=== PATIENT | male | born 1970 | race American Indian/Alaskan Native ===

== ENCOUNTER 2018-07-02 09:48 | Inpatient (IN) | payer BC ==
[~2018-07-02 09:48] MED LIST: Acetaminophen 1,000 MG in Premix Bag 1 BAG IV SCH; Famotidine 20 MG/2 ML SDV IVPUSH SCH; Ketorolac 30 MG/ML SDV IVPUSH SCH; Ropivacaine 49.25 ML, Ketorolac 30 MG, EPINEPHrine 0.5 MG, cloNIDine 80 MCG in Sodium C... INJECT SCH; Scopolamine 1.5 MG Transdermal Patch TRDERM SCH; Tranexamic Acid 2,000 MG in Sodium Chloride 0.9% 100 ML IV ONE; ceFAZolin 2 GM in Premix Bag 1 BAG IV SCH
[2018-07-02] MEDS: Lactated Ringers 1,000 ML IV SCH ×2 (10:23→15:06)
--- NOTE | 2018-07-02 10:45 | PCM.PREANE ---
Preanesthetic Assessment - Anesthesia/Transfusion/Family Hx Anesthesia History: Prior Anesthesia Without Reaction Other Type of Anesthesia Reaction Comment: Denies any known problem in past Family History of Anesthesia Reaction: No Transfusion History: No Prior Transfusion(s) Intubation History: Unknown - Review of Systems General: No Symptoms Pulmonary: No Symptoms Cardiovascular: No Symptoms Gastrointestinal: No Symptoms Neurological: No Symptoms Other: Reports: None - Physical Assessment O2 Sat by Pulse Oximetry: 100 Respiratory Rate: 16 Vital Signs: Last Vital Signs Temp 36.4 C 07/02/18 10:10 Pulse 71 07/02/18 10:10 Resp 16 07/02/18 10:10 BP 149/93 H 07/02/18 10:10 Pulse Ox 100 07/02/18 10:10 Height: 1.88 m Weight: 99.79 kg ASA Class: 2 Mental Status: Alert & Oriented x3 Airway Class: Mallampati = 2 Dentition: Reports: Normal Dentition Thyro-Mental Finger Breadths: 3 Mouth Opening Finger Breadths: 2 ROM/Head Extension: Full Lungs: Clear to Auscultation, Normal Respiratory Effort Cardiovascular: Regular Rate, Regular Rhythm - Allergies Allergies/Adverse Reactions: Allergies Allergy/AdvReac Type Severity Reaction Status Date / Time No Known Allergies Allergy Verified 07/02/18 10:27 - Blood Blood Available: No - Anesthesia Plan Pre-Op Medication Ordered: None - Acknowledgements Anesthesia Type Planned: Spinal (general anesthesia back-up plan) Pt an Appropriate Candidate for the Planned Anesthesia: Yes Alternatives and Risks of Anesthesia Discussed w Pt/Guardian: Yes Pt/Guardian Understands and Agrees with Anesthesia Plan: Yes PreAnesthesia Questionnaire HEENT History: Reports: Glaucoma, Other (See Below) Other HEENT History: wears glasses Cardiovascular History: Reports: High Cholesterol, Hypertension Respiratory History: Reports: None Gastrointestinal History: Reports: None Genitourinary History: Reports: None Musculoskeletal History: Reports: Osteoarthritis Endocrine/Metabolic History: Reports: Diabetes, Type II - Past Surgical History Head Surgeries/Procedures: Reports: None HEENT Surgical History: Reports: Eye Surgery Musculoskeletal Surgical History: Reports: Arthroscopic Knee, Knee Replacement ( 04/15) Other Musculoskeletal Surgeries/Procedures:: Left Knee arthroscopy (denies any hardware) - SUBSTANCE USE Smoking Status *Q: Never Smoker Recreational Drug Use History: No - HOME MEDS Home Medications: Home Meds Folic Acid 0.4 mg PO DAILY 02/06/15 [History] Hydrochlorothiazide 25 mg PO DAILY 02/06/15 [History] Multivitamin [Multi-Vitamin Daily] 1 tab PO DAILY 02/06/15 [History] Telmisartan [Micardis] 80 mg PO DAILY 02/06/15 [History] Latanoprost/Pf [Latanoprost 0.005% Eye Drop] 1 drop EYEBOTH BEDTIME 05/08/18 [ History] Mupirocin Oint [Bactroban Oint] 1 applicful NASBOTH BID 05/08/18 [History] Saxagliptin HCl [Onglyza] 5 mg PO DAILY 05/08/18 [History] Simvastatin 10 mg PO QPM 05/08/18 [History] metFORMIN HCl [Metformin ER Osmotic] 1,000 mg PO QAM 05/08/18 [History] metFORMIN HCl [Metformin ER Osmotic] 1,500 mg PO QPM 05/08/18 [History] Celecoxib [CeleBREX] 200 mg PO DAILY #30 cap 05/09/18 [Rx] Aspirin 81 mg PO DAILY 06/27/18 [History] - CURRENT (IN HOUSE) MEDS Current Meds: Current Medications Famotidine (Pepcid) 40 mg IVPUSH [facility] Last Admin: 07/02/18 10:25 Dose: 40 mg Acetaminophen 1,000 mg/ Premix 100 mls @ 400 mls/hr IV [facility] Last Admin: 07/02/18 10:32 Dose: 400 mls/hr Cefazolin Sodium/Dextrose 2 gm (/ Premix) 50 mls @ 100 mls/hr IV ONCALL [facility] Ropivacaine 49.25 ml/Ketorolac Tromethamine 30 mg/Epinephrine HCl 0.5 mg/ Clonidine HCl 80 mcg/ Sodium Chloride 100 mls @ 50 mls/sec INJECT [facility] Lactated Ringer's (Ringers, Lactated) 1,000 mls @ 100 mls/hr IV ASDIRECTED [facility] Last Admin: 07/02/18 10:23 Dose: 100 mls/hr Ketorolac Tromethamine (Toradol) 30 mg [facility]PUSH [facility] Last Admin: 07/02/18 10:26 Dose: 30 mg Scopolamine (Transderm-Scop) 1.5 mg TRDERM [facility] Last Admin: 07/02/18 10:24 Dose: 1.5 mg Discontinued Medications Tranexamic Acid 2,000 mg/ (Sodium Chloride) 120 mls @ 600 mls/hr IV ASDIRECTED ONE Stop: 07/02/18 08:11 Tranexamic Acid (Cyklokapron) Confirm Administered Dose 2,000 mg .ROUTE .STK- MED ONE Stop: 07/02/18 07:36
[2018-07-02] MEDS ORDERED: Propofol 200 MG/20 ML SDV ONE ×2 (10:47→10:49)
[2018-07-02] MEDS ORDERED: Midazolam 1 MG/ML 2 ML SDV ONE (10:47)
[2018-07-02] MEDS ORDERED: Lidocaine 2% 5 ML SDV ONE (10:47)
[2018-07-02] MEDS ORDERED: fentaNYL 100 MCG/2 ML SDV ONE ×2 (10:47→13:17)
[2018-07-02] MEDS ORDERED: ceFAZolin 1 GM Vial ONE (12:14)
[2018-07-02] MEDS ORDERED: Naloxone 0.4 MG/ML Syringe IVPUSH PRN (12:55)
[2018-07-02] MEDS ORDERED: Atropine 1 MG/ML SDV IVPUSH PRN ×2 (12:55→13:12)
[2018-07-02] MEDS ORDERED: EPINEPHrine 1 MG/1 ML Amp IVPUSH ONE (12:55)
[2018-07-02] MEDS ORDERED: Atropine 0.4 MG/ML SDV IVPUSH PRN (12:55)
[2018-07-02] MEDS ORDERED: 50% Dextrose in Water 50 ML Syringe IVPUSH PRN (12:55)
[2018-07-02] MEDS ORDERED: fentaNYL 100 MCG/2 ML SDV IVPUSH PRN (12:55)
[2018-07-02] MEDS ORDERED: Albuterol 0.083% 2.5 MG/3 ML Neb Soln NEB PRN (12:55)
[2018-07-02] MEDS ORDERED: Sodium Chloride 0.9% 10 ML Syringe FLUSH PRN (13:41)
[2018-07-02] MEDS ORDERED: Aluminum Hydroxide/Magnesium Hydroxide/Simethicone Susp 30 ML Cup PO PRN (13:41)
[2018-07-02] MEDS ORDERED: Sodium Chloride 0.9% 2.5 ML Syringe FLUSH PRN (13:41)
[2018-07-02] MEDS ORDERED: Ondansetron 4 MG/2 ML SDV IVPUSH PRN (13:41)
[2018-07-02] MEDS ORDERED: diphenhydrAMINE 25 MG Cap PO PRN (13:41)
[2018-07-02] MEDS ORDERED: Bisacodyl 10 MG Supp RECTAL PRN (13:41)
[2018-07-02] MEDS ORDERED: Morphine PF 30 MG/30 ML PCA Vial IV PRN (13:41)
--- NOTE | 2018-07-02 13:52 | PCM.OPNOTE ---
- General Post-Op/Procedure Note Date of Surgery/Procedure: 07/02/18 Operative Procedure(s): L TKa Post-Op Diagnosis: DJD left knee Anesthesia Technique: Moderate Sedation, Spinal Primary Surgeon: Albania Norris Technical Program Manager: Milli Morgan Technical Program Manager: Maylin Bland in mLs: 50 Condition: Good Free Text/Narrative:: tt=51 min #[id number]
--- NOTE | 2018-07-02 15:07 | PCM.CONS ---
H&P History of Present Illness - General Date of Service: 07/02/18 Admit Problem/Dx: Admission Diagnosis/Problem Admission Diagnosis/Problem Replacement of total knee joint Source of Information: Patient History Limitations: Reports: No Limitations - History of Present Illness Initial Comments - Free Text/Narative: The patient is a 48-year-old gentleman is currently postop day 0 for left total knee arthroplasty. Internal medicine had been asked to consult on patient by orthopedic surgeon, Dr. Albania Norris, for medical management of this patient. The patient has a past medical history of diabetes mellitus type 2 that is been controlled primarily with diet. He also has hypertension. Onset of Symptoms: Reports: Gradual Location: Reports: Lower Extremity, Left Severity: Moderate - Related Data Allergies/Adverse Reactions: Allergies Allergy/AdvReac Type Severity Reaction Status Date / Time No Known Allergies Allergy Verified 07/02/18 10:27 Home Medications: Home Meds Folic Acid 0.4 mg PO DAILY 02/06/15 [History] Hydrochlorothiazide 25 mg PO DAILY 02/06/15 [History] Multivitamin [Multi-Vitamin Daily] 1 tab PO DAILY 02/06/15 [History] Telmisartan [Micardis] 80 mg PO DAILY 02/06/15 [History] Latanoprost/Pf [Latanoprost 0.005% Eye Drop] 1 drop EYEBOTH BEDTIME 05/08/18 [ History] Mupirocin Oint [Bactroban Oint] 1 applicful NASBOTH BID 05/08/18 [History] Saxagliptin HCl [Onglyza] 5 mg PO DAILY 05/08/18 [History] Simvastatin 10 mg PO QPM 05/08/18 [History] metFORMIN HCl [Metformin ER Osmotic] 1,000 mg PO QAM 05/08/18 [History] metFORMIN HCl [Metformin ER Osmotic] 1,500 mg PO QPM 05/08/18 [History] Celecoxib [CeleBREX] 200 mg PO DAILY #30 cap 05/09/18 [Rx] Aspirin 81 mg PO DAILY 06/27/18 [History] Past Medical History HEENT History: Reports: Glaucoma, Other (See Below) Other HEENT History: wears glasses Cardiovascular History: Reports: High Cholesterol, Hypertension Respiratory History: Reports: None Gastrointestinal History: Reports: None Genitourinary History: Reports: None Musculoskeletal History: Reports: Osteoarthritis Neurological History: Reports: None Psychiatric History: Reports: None Endocrine/Metabolic History: Reports: Diabetes, Type II Hematologic History: Reports: None Immunologic History: Reports: None Oncologic (Cancer) History: Reports: None Dermatologic History: Reports: None - Infectious Disease History Infectious Disease History: Reports: None - Past Surgical History Head Surgeries/Procedures: Reports: None HEENT Surgical History: Reports: Eye Surgery Musculoskeletal Surgical History: Reports: Arthroscopic Knee, Knee Replacement ( 04/15) Other Musculoskeletal Surgeries/Procedures:: Left Knee arthroscopy (denies any hardware) Social & Family History - Tobacco Use Smoking Status *Q: Never Smoker - Alcohol Use Alcohol Use History: No - Recreational Drug Use Recreational Drug Use: No - Living Situation & Occupation Living situation: Reports: H&P Review of Systems - Review of Systems: Review Of Systems: See Below General: Reports: No Symptoms HEENT: Reports: No Symptoms Pulmonary: Reports: No Symptoms Cardiovascular: Reports: No Symptoms Gastrointestinal: Reports: No Symptoms Genitourinary: Reports: No Symptoms Musculoskeletal: Reports: Leg Pain Skin: Reports: No Symptoms Psychiatric: Reports: No Symptoms Neurological: Reports: No Symptoms Hematologic/Lymphatic: Reports: No Symptoms Immunologic: Reports: No Symptoms Exam - Exam Exam: See Below - Vital Signs Vital Signs: Last Vital Signs Temp 37.1 C 07/02/18 14:05 Pulse 49 L 07/02/18 14:36 Resp 10 L 07/02/18 14:36 BP 114/73 07/02/18 14:36 Pulse Ox 99 07/02/18 14:36 Weight: 99.79 kg - Exam Quality Assessment: No: Supplemental Oxygen General: Alert, Oriented, Cooperative HEENT: Conjunctiva Clear, EACs Clear, Hearing Intact, Mucosa Moist & [place], Nares Patent, Pupils Equal, Pupils Reactive Neck: Supple, Trachea Midline Lungs: Clear to Auscultation, Normal Respiratory Effort Cardiovascular: Regular Rate, Regular Rhythm GI/Abdominal Exam: Normal Bowel Sounds, Soft, Non-Tender, No Distention (Male) Exam: Deferred Rectal (Males) Exam: Deferred Back Exam: Normal Inspection, Full Range of Motion Extremities: No: Normal Range of Motion (postop day 0) Skin: Warm, Dry, Intact Neurological: Cranial Nerves Intact Neuro Extensive - Mental Status: Alert, Oriented x3 Psychiatric: Alert, Normal Affect, Normal Mood - Patient Data Lab Results Last 24 hrs: Laboratory Results - last 24 hr 07/02/18 07/02/18 Range/Units 10:25 10:42 POC Glucose 96 (60-110) mg/dL Blood Type O POSITIVE Antibody Screen NEGATIVE Consult PN Assessment/Plan POD#: 0 Procedures: Procedures COMPLETE CBC W/AUTO DIFF WBC (01/21/15) COMPREHEN METABOLIC PANEL (01/21/15) LIPID PANEL (01/21/15) MRI JNT OF LWR EXTRE W/O DYE (05/25/18) PT EVAL LOW COMPLEX 20 MIN (05/28/18) ROUTINE VENIPUNCTURE (01/21/15) THERAPEUTIC EXERCISES (05/28/18) VASOPNEUMATIC DEVICE THERAPY (05/28/18) X-RAY EXAM OF KNEE 1 OR 2 (04/03/18) X-RAY EXAM OF KNEE 3 (05/18/18) (1) S/P total knee replacement SNOMED Code(s): 6673441454348, 690507108, 5565249319041 Code(s): Z96.659 - PRESENCE OF UNSPECIFIED ARTIFICIAL KNEE JOINT Priority: High Current Visit: Yes Qualifiers: Laterality: bilateral Qualified Code(s): Z96.653 - Presence of artificial knee joint, bilateral (2) DM type 2 (diabetes mellitus, type 2) SNOMED Code(s): 89485561 Code(s): E11.9 - TYPE 2 DIABETES MELLITUS WITHOUT COMPLICATIONS Priority: High Current Visit: Yes Qualifiers: Diabetes mellitus termination clerk insulin use: without termination clerk use Diabetes mellitus complication status: without complication Qualified Code(s): E11.9 - Type 2 diabetes mellitus without complications (3) HTN (hypertension) SNOMED Code(s): 16873590 Code(s): I10 - ESSENTIAL (PRIMARY) HYPERTENSION Priority: High Current Visit: Yes Qualifiers: Hypertension type: essential hypertension Qualified Code(s): I10 - Essential (primary) hypertension Problem List Initiated/Reviewed/Updated: Yes Plan: The patient is a 48-year-old gentleman who is currently postop day #0 left total knee arthroplasty. The patient is diabetic and the patient will be On Accu -Cheks before meals and at bedtime as well as sliding scale insulin. I've elected to hold the patient's antidiabetic agents for now and replace this with NovoLog. The patient was kept on a ADA diet. The patient has hypertension and will have vital signs taken every 4 hours. The patient's medications for his hypertension from home have been restarted. The patient's medications will be adjusted as needed. Will follow with orthopedics. I would like to thank Dr. Albania Norris for participation in care of her patient. Requesting Provider: Dr. Albania Norris Date Consult Requested: 07/02/18 Reason for Consult: Medical management Patient History Reviewed: Yes Admission H&P Reviewed: Yes Notified Requestor: Yes
--- NOTE | 2018-07-02 16:08 | OR ---
SURGEON: Albania Norris MD DATE OF PROCEDURE: 07/02/2018 PREOPERATIVE DIAGNOSIS: Degenerative joint disease, left knee, tricompartmental. POSTOPERATIVE DIAGNOSIS: Degenerative joint disease, left knee, tricompartmental. PROCEDURE: Left total knee arthroplasty using patient specific instrumentation. ASSISTANTS: GASTON Rodriguez and Maylin Bland PA-C. ANESTHESIA: Spinal with sedation. ESTIMATED BLOOD LOSS: 50 mL. TOURNIQUET TIME: 51 minutes. COMPLICATIONS: None. DVT PROPHYLAXIS: PAS boot and ANSON hose to the nonoperative leg. IMPLANTS USED: Lucero Persona femoral component size 11 standard (LPS), tibial component size G, 11 mm all-polyethylene articular surface, and 35 mm all-polyethylene patella. INTRAPOERATIVE FINDINGS: Showed severe tricompartmental degenerative changes. He had eburnation of the bone along the medial tibial plateau with osteophyte formation and a groove was formed from the femoral condyle. No significant synovitis was noted. BRIEF HISTORY: Candelario is a 48-year-old male who has had complaint of progressive left knee pain. He had failed conservative treatment. He has previously undergone a right total knee arthroplasty and has done well. Due to his lack of response to conservative treatment, I did recommend surgical intervention. The risks and goals of procedure were discussed with the patient and were documented preoperatively. He agreed to proceed. DESCRIPTION OF PROCEDURE: The patient was properly identified and brought to the operating room. The patient was then transferred from the operating room cart and placed on the operating table in a supine position. Anesthesia was administered by the anesthesia staff. After adequate anesthesia was obtained, a well-padded tourniquet was applied to the surgical lower extremity. Lazo catheter was placed. The lower extremity was then prepped in standard fashion using ChloraPrep solution. It was then sterilely draped. A time-out was performed to ensure correct site and procedure. Preoperative antibiotics were given along with one gram of tranexamic acid IV. The surgical site had been marked preoperatively. An Esmarch was used to exsanguinate the left lower extremity and the tourniquet was inflated. An incision was made over the anterior aspect of the knee. The subcutaneous tissues were dissected down to the level of the fascia. A medial parapatellar approach to the knee was made. A portion of the infrapatellar fat pad was then excised. The distal femur was then exposed. The femoral patient-specific cutting guide was then placed. Pins were also placed. The distal femoral cutting block was placed and the distal femoral cut was made. Instrumentation was then removed. Both Whitesides' line and the epicondylar axis were then marked with electrocautery. The 4-in-1 cutting block was placed. This was placed in a slightly externally rotated position, which corresponded well with the previously drawn lines. The cutting guide was then pinned into position. An Lenard wing guide was used to check the depth of resection of our anterior condylar cut and it was felt that no notching would occur. The anterior condylar cut was then made followed by the posterior condylar cut. Both the posterior chamfer and anterior chamfer cuts were then made. The cutting block was then removed along with the excess bony remnants. We then turned our attention to the tibia. The anterior cruciate ligament and posterior cruciate ligament were released and a posterior cruciate ligament retractor was placed to allow the tibia to be pulled anteriorly. The tibial patient-specific guide was then placed on the proximal tibia. This fit anatomically. The pins were then placed. The proximal tibia cutting guide was then placed and screwed into position. The proximal tibial resection was then made with care being taken to protect the patellar tendon. The bony resection was then removed. The remainder of the medial and lateral meniscus were then excised. Care was taken to protect the popliteus tendon. The tibia was then sized to the appropriate size. The distal femur was then elevated. The posterior capsule was stripped off the distal femur both medially and laterally. The posterior capsule along with the medial and lateral gutters were then injected with a standard mixture consisting of clonidine, epinephrine, Toradol, and Ropivacaine, unless any allergies were found preoperatively. The femoral component was then placed onto the distal femur in a slightly lateral position. This fit the femur well. A box cut was then made without difficulty. This was then removed. The tibial trial along with the polyethylene liner was then placed. The knee came easily into full extension and was stable to varus and valgus stressing both in full extension and flexion. Any additional releases were performed at this time. We then returned our attention to the patella. The patella was everted and towel clamps were used to hold the patella in position. It was resected to a 15 millimeter thickness. It was then sized to the appropriate size. It was prepared in the usual fashion after placing the predetermined size clamps. This was placed in a slightly superior and medial position. The clamp was then removed. The patellar trial button was placed. The knee was taken through a range of motion using the no-touch technique. The patella tracked centrally. A drop randall was then placed to check alignment. All instruments were then removed from the knee. The tibial sizer was then placed on the tibia. The tibia was prepared in the usual fashion using the reamer and broach. This was then removed. All bony surfaces were copiously irrigated with Pulsavac solution. They were then suctioned dry. Cement was prepared on the back table in the usual manner. Once it was prepared, the bone ends were again suctioned dry. The tibia was cemented into place first. This was malleted into position. Excess cement was then cleared. The femur was then placed in a similar manner. We placed the polyethylene trial into place and the knee was brought into full extension. An axial load was placed while keeping the knee in full extension. The patella button was also cemented into position and the clamp was used to hold this in place as the cement was allowed to cure. The wound was again copiously irrigated with saline solution using a Pulsavac fishing accessories maker. Following this 1 g of tranexamic acid was applied to the wound topically. After we had adequate curing of the cement, the knee was again taken through a range of motion. The size of the polyethylene was then determined. The polyethylene trial was then removed. The tibial tray was suctioned to make sure there was no remaining soft tissue or cement. Excess cement was cleared from around the edges of the prosthesis as well. The tourniquet was then deflated. We were able to observe for any excess bleeding and none was noted. Electrocautery was used to maintain hemostasis. An additional gram of tranexamic acid was given IV. The retractors were again placed and the predetermined polyethylene was then placed. This was locked into position without difficulty. The knee was again taken through a range of motion with no change from the prior exam. The fascial layer was closed with Number One Vicryl. The subcutaneous tissues were closed with 2-0 Vicryl. The skin was closed with marshall. Xeroform gauze was placed over the wound and a bulky dressing was applied. The patient was then awakened from anesthesia and transferred back to the operating room cart. They were brought to the recovery room in stable condition. All needle and sponge counts were correct. NATALY / JOELLE /[id number]
--- NOTE | 2018-07-02 17:06 | CR ---
EXAMINATION: Left knee HISTORY: TKA COMPARISON: 04/03/2018 TECHNIQUE: 2 views FINDINGS/IMPRESSION: Left total knee hardware is demonstrated. Position and alignment. Postoperative soft tissue changes noted.
[2018-07-02] MEDS: oxyCODONE 5 MG Tab PO PRN ×2 (17:28→21:43)
[2018-07-02] MEDS ORDERED: Simvastatin 10 MG Tab PO SCH (18:00)
[2018-07-02] MEDS: Ketorolac 30 MG/ML SDV IVPUSH SCH (18:51)
[2018-07-02] MEDS: Acetaminophen 1,000 MG in Premix Bag 1 BAG IV SCH (18:57)
[2018-07-02] MEDS: ceFAZolin 2 GM in Premix Bag 1 BAG IV SCH (20:57)
[2018-07-02] MEDS ORDERED: Latanoprost 0.005% Ophth Soln 2.5 ML Bottle EYEBOTH SCH (21:00)
[2018-07-02] MEDS: Insulin Aspart 100 Units/ML 3 ML Pen SUBCUT SCH (21:03)
[2018-07-02] MEDS ORDERED: Docusate Sodium 100 MG Cap PO PRN (21:41)
[2018-07-03] MEDS: Ketorolac 30 MG/ML SDV IVPUSH SCH (00:21)
[2018-07-03] MEDS: Acetaminophen 1,000 MG in Premix Bag 1 BAG IV SCH ×2 (00:27→06:42)
[2018-07-03] MEDS: Lactated Ringers 1,000 ML IV SCH (03:47)
[2018-07-03] MEDS: oxyCODONE 5 MG Tab PO PRN (04:02)
[2018-07-03] MEDS: ceFAZolin 2 GM in Premix Bag 1 BAG IV SCH (04:05)
[2018-07-03 05:43] LABS: CHLORIDE,CL 106 mmol/L (98-107); SODIUM,NA 140 mmol/L (136-148)
[2018-07-03] MEDS ORDERED: Acetaminophen/oxyCODONE 325-5 MG Tab PO PRN (06:00)
[2018-07-03] MEDS ORDERED: Morphine 4 MG/ML Syringe IVPUSH PRN (06:00)
[2018-07-03] MEDS: Insulin Aspart 100 Units/ML 3 ML Pen SUBCUT SCH (06:55)
--- NOTE | 2018-07-03 08:09 | PCM.CONSN ---
<Ceci Wyman M - Last Filed: 07/03/18 09:23> - General Info Date of Service: 07/03/18 Admission Dx/Problem (Free Text): Admission Diagnosis/Problem Admission Diagnosis/Problem Replacement of total knee joint Subjective Update: Doing well this morning. Pain well controlled. No chest pain or SOB. No other concerns. Hoping to go home today. Functional Status: Reports: Pain Controlled, Tolerating Diet, Ambulating, Urinating - Review of Systems General: Reports: No Symptoms HEENT: Reports: No Symptoms. Denies: Headaches, Sore Throat, Visual Changes Pulmonary: Reports: No Symptoms. Denies: Shortness of Breath Cardiovascular: Reports: No Symptoms. Denies: Chest Pain Gastrointestinal: Reports: No Symptoms. Denies: Abdominal Pain, Nausea, Vomiting Genitourinary: Reports: No Symptoms. Denies: Dysuria, Frequency, Burning Musculoskeletal: Reports: No Symptoms Skin: Reports: No Symptoms Neurological: Reports: No Symptoms Psychiatric: Reports: No Symptoms - Patient Data Vitals - Most Recent: Last Vital Signs Temp 97.4 F 07/03/18 04:00 Pulse 71 07/03/18 04:00 Resp 15 07/03/18 04:00 BP 107/72 07/03/18 04:00 Pulse Ox 97 07/03/18 04:00 Weight - Most Recent: 99.79 kg I&O - Last 24 Hours: Intake & Output 07/02/18 07/03/18 07/03/18 22:59 06:59 14:59 Intake Total 550 300 Output Total 100 1000 Balance 450 -700 Lab Results Last 24 Hours: Laboratory Results - last 24 hr 07/02/18 07/02/18 07/02/18 Range/Units 10:25 10:42 18:52 Hgb (13.0-17.0) g/dL Hct (38.0-50.0) % Sodium (136-148) mmol/L Potassium (3.5-5.1) mmol/L Chloride (98-107) mmol/L Carbon Dioxide (21.0-32.0) mmol/L BUN (7.0-18.0) mg/dL Creatinine (0.8-1.3) mg/dL Est Cr Clr Drug Dosing mL/min Estimated GFR (MDRD) ml/min Glucose (74-106) mg/dL POC Glucose 96 125 H (60-110) mg/dL Calcium (8.5-10.1) mg/dL Blood Type O POSITIVE Antibody Screen NEGATIVE 07/02/18 07/03/18 07/03/18 Range/Units 21:02 05:20 05:20 Hgb 12.7 L (13.0-17.0) g/dL Hct 38.7 (38.0-50.0) % Sodium 140 (136-148) mmol/L Potassium 4.7 (3.5-5.1) mmol/L Chloride 106 (98-107) mmol/L Carbon Dioxide 27.2 (21.0-32.0) mmol/L BUN 18 (7.0-18.0) mg/dL Creatinine 0.9 (0.8-1.3) mg/dL Est Cr Clr Drug Dosing 114.17 mL/min Estimated GFR (MDRD) > 60.0 ml/min Glucose 105 (74-106) mg/dL POC Glucose 158 H (60-110) mg/dL Calcium 8.4 L (8.5-10.1) mg/dL Blood Type Antibody Screen Med Orders - Current: Current Medications Al Hydroxide/Mg Hydroxide (Mag-Al Plus) 30 ml PO Q4H PRN PRN Reason: Indigestion Aspirin (Aspirin) 325 mg PO BID [facility] Bisacodyl (Dulcolax) 10 mg RECTAL DAILY PRN PRN Reason: Constipation Celecoxib (Celebrex) 200 mg PO BID [facility] Diphenhydramine HCl (Benadryl) 25 - 50 mg PO Q6H PRN PRN Reason: Itching Docusate Sodium (Colace) 100 mg PO BID PRN PRN Reason: Constipation Famotidine (Pepcid) 40 mg PO DAILY [facility] Hydrochlorothiazide (Hydrochlorothiazide) 25 mg PO DAILY [facility] Lactated Ringer's (Ringers, Lactated) 1,000 mls @ 100 mls/hr IV ASDIRECTED [facility] Last Admin: 07/03/18 03:47 Dose: 100 mls/hr Insulin Aspart (Novolog) 0 unit SUBCUT ACBREAKFASTANDBED [facility]; Protocol Last Admin: 07/03/18 06:55 Dose: Not Given Latanoprost (Xalatan 0.005% Ophth Soln) 0 ml EYEBOTH BEDTIME [facility] Last Admin: 07/02/18 21:43 Dose: Not Given Morphine Sulfate (Morphine) 1 - 3 mg IVPUSH Q3H PRN PRN Reason: Pain Non-Formulary Medication (Telmisartan [Micardis]) 80 mg PO DAILY [facility] Ondansetron HCl (Zofran) 4 mg IVPUSH Q6H PRN PRN Reason: Nausea/Vomiting Oxycodone/Acetaminophen (Percocet 325-5 Mg) 1 - 2 tab PO Q4H PRN PRN Reason: Pain Polyethylene Glycol (Miralax) 17 gm PO DAILY [facility] Scopolamine (Transderm-Scop) 1.5 mg TRDERM ONARRIVE [facility] Last Admin: 07/02/18 10:24 Dose: 1.5 mg Simvastatin (Zocor) 10 mg PO QPM [facility] Last Admin: 07/02/18 18:52 Dose: 10 mg Sodium Chloride (Saline Flush) 10 ml FLUSH ASDIRECTED PRN PRN Reason: Keep Vein Open Sodium Chloride (Saline Flush) 2.5 ml FLUSH ASDIRECTED PRN PRN Reason: Keep Vein Open Discontinued Medications Albuterol (Proventil Neb Soln) 2.5 mg NEB ONETIME PRN PRN Reason: Wheezing Atropine Sulfate (Atropine) 1 mg IVPUSH ASDIRECTED PRN PRN Reason: ACLS Guidelines Atropine Sulfate (Atropine 1 Mg/Ml) 0.5 mg IVPUSH ASDIRECTED PRN PRN Reason: Hypo-Perfusion Atropine Sulfate (Atropine 1 Mg/Ml) 1 mg IVPUSH ASDIRECTED PRN PRN Reason: ACLS Guidelines Cefazolin Sodium (Ancef) Confirm Administered Dose 2 gm .ROUTE .STK-MED ONE Stop: 07/02/18 12:15 Dextrose/Water (Dextrose 50% In Water) 50 ml IVPUSH ASDIRECTED PRN PRN Reason: Hypoglycemia Epinephrine HCl (Adrenalin) 1 mg IVPUSH NOW ONE Stop: 07/02/18 12:56 Last Admin: 07/02/18 15:23 Dose: Not Given Famotidine (Pepcid) 40 mg IVPUSH ONARRIVE [facility] Last Admin: 07/02/18 10:25 Dose: 40 mg Fentanyl (Sublimaze) Confirm Administered Dose 100 mcg .ROUTE .STK-MED ONE Stop: 07/02/18 10:48 Fentanyl (Sublimaze) 50 - 100 mcg IVPUSH Q5M PRN PRN Reason: Pain Fentanyl (Sublimaze) Confirm Administered Dose 100 mcg .ROUTE .STK-MED ONE Stop: 07/02/18 13:18 Acetaminophen 1,000 mg/ Premix 100 mls @ 400 mls/hr IV ONARRIVE [facility] Last Admin: 07/02/18 10:32 Dose: 400 mls/hr Cefazolin Sodium/Dextrose 2 gm (/ Premix) 50 mls @ 100 mls/hr IV ONCALL [facility] Ropivacaine 49.25 ml/Ketorolac Tromethamine 30 mg/Epinephrine HCl 0.5 mg/ Clonidine HCl 80 mcg/ Sodium Chloride 100 mls @ 50 mls/sec INJECT ASDIRECTED [facility] Tranexamic Acid 2,000 mg/ (Sodium Chloride) 120 mls @ 600 mls/hr IV ASDIRECTED ONE Stop: 07/02/18 08:11 Last Admin: 07/02/18 15:22 Dose: Not Given Acetaminophen 1,000 mg/ Premix 100 mls @ 400 mls/hr IV Q6H [facility] Stop: 07/03/18 07:14 Last Admin: 07/03/18 06:42 Dose: 400 mls/hr Cefazolin Sodium/Dextrose 2 gm (/ Premix) 50 mls @ 100 mls/hr IV Q8H [facility] Stop: 07/03/18 05:29 Last Admin: 07/03/18 04:05 Dose: 100 mls/hr Ketorolac Tromethamine (Toradol) 30 mg IVPUSH ONARRIVE [facility] Last Admin: 07/02/18 10:26 Dose: 30 mg Ketorolac Tromethamine (Toradol) 30 mg IVPUSH Q6H [facility] Stop: 07/03/18 05:00 Last Admin: 07/03/18 00:21 Dose: 30 mg Lidocaine (Xylocaine-Mpf 2%) Confirm Administered Dose 5 ml .ROUTE .STK-MED ONE Stop: 07/02/18 10:48 Midazolam HCl (Versed 1 Mg/Ml) Confirm Administered Dose 2 mg .ROUTE .STK-MED ONE Stop: 07/02/18 10:48 Morphine Sulfate (Morphine Outside Sales Manager 30 Mg In 30 Ml) 30 mg IV ASDIRECTED PRN; Protocol PRN Reason: Pain Stop: 07/03/18 06:00 Last Admin: 07/02/18 14:21 Dose: 30 mg Naloxone HCl (Narcan) 0.1 mg IVPUSH ASDIRECTED PRN PRN Reason: Respiratory Depression Oxycodone HCl (Oxycodone) 5 - 10 mg PO Q4H PRN PRN Reason: Pain Stop: 07/03/18 06:00 Last Admin: 07/03/18 04:02 Dose: 10 mg Propofol (Diprivan 20 Ml) Confirm Administered Dose 400 mg .ROUTE .STK-MED ONE Stop: 07/02/18 10:48 Propofol (Diprivan 20 Ml) Confirm Administered Dose 200 mg .ROUTE .STK-MED ONE Stop: 07/02/18 10:50 Tobramycin (Tobramycin) 1,200 mg IV .STK-MED ONE Stop: 07/02/18 09:50 Tranexamic Acid (Cyklokapron) Confirm Administered Dose 2,000 mg .ROUTE .STK- MED ONE Stop: 07/02/18 07:36 - Exam General: Alert, Oriented, No Acute Distress Neck: Supple Lungs: Clear to Auscultation, Normal Respiratory Effort Cardiovascular: Regular Rate, Regular Rhythm GI/Abdominal Exam: Normal Bowel Sounds, Soft, Non-Tender Extremities: Normal Inspection, Normal Range of Motion, Normal Capillary Refill , Pedal Edema (+1 edema to L leg) Peripheral Pulses: 2+: Posterior Tibial (L), Posterior Tibial (R), Dorsalis Pedis (L), Dorsalis Pedis (R) Neurological: No New Focal Deficit Psy/Mental Status: Alert, Normal Affect, Normal Mood Consult PN Assessment/Plan Procedures: Procedures COMPLETE CBC W/AUTO DIFF WBC (01/21/15) COMPREHEN METABOLIC PANEL (01/21/15) LIPID PANEL (01/21/15) MRI JNT OF LWR EXTRE W/O DYE (05/25/18) PT EVAL LOW COMPLEX 20 MIN (05/28/18) ROUTINE VENIPUNCTURE (01/21/15) THERAPEUTIC EXERCISES (06/18/18) VASOPNEUMATIC DEVICE THERAPY (05/28/18) X-RAY EXAM OF KNEE 1 OR 2 (04/03/18) X-RAY EXAM OF KNEE 3 (05/18/18) (1) S/P total knee replacement SNOMED Code(s): 5128783284310, 874723855, 7852228812496 Code(s): Z96.659 - PRESENCE OF UNSPECIFIED ARTIFICIAL KNEE JOINT Priority: High Qualifiers: Laterality: bilateral Qualified Code(s): Z96.653 - Presence of artificial knee joint, bilateral (2) DM type 2 (diabetes mellitus, type 2) SNOMED Code(s): 07881915 Code(s): E11.9 - TYPE 2 DIABETES MELLITUS WITHOUT COMPLICATIONS Priority: High Qualifiers: Diabetes mellitus residential insulin use: without ferry terminal agent use Diabetes mellitus complication status: without complication Qualified Code(s): E11.9 - Type 2 diabetes mellitus without complications (3) HTN (hypertension) SNOMED Code(s): 87029848 Code(s): I10 - ESSENTIAL (PRIMARY) HYPERTENSION Priority: High Qualifiers: Hypertension type: essential hypertension Qualified Code(s): I10 - Essential (primary) hypertension (4) Glaucoma SNOMED Code(s): 80683001 Code(s): H40.9 - UNSPECIFIED GLAUCOMA Problem List Initiated/Reviewed/Updated: Yes Plan: This 48 year old male admitted with L TKA by Dr Norris. Hospitalist service consulted for medical management 1. S/P L TKA: Per Dr Norris. 2. DM Type 2: Continue Novolog SSI. Holding Metformin post-operatively. BS stable. 3. HTN: Stable. Continue Micardis and HCTZ VTE prophylaxis: Continue ASA. <Kwame Santiago - Last Filed: 07/03/18 15:48> - General Info Admission Dx/Problem (Free Text): I have seen and examined the patient independently of Ceci Wyman CNP. I agree with the assessment and plan of care as outlined for this patient by the Ceci Wyman. Please see orders. Will sign off. - Patient Data Vitals - Most Recent: Last Vital Signs Temp 36.7 C 07/03/18 11:54 Pulse 83 07/03/18 11:54 Resp 18 07/03/18 11:54 BP 108/72 07/03/18 11:54 Pulse Ox 99 07/03/18 11:54 I&O - Last 24 Hours: Intake & Output 07/03/18 07/03/18 07/03/18 06:59 14:59 22:59 Intake Total 300 586 Output Total 1000 Balance -700 586 Lab Results Last 24 Hours: Laboratory Results - last 24 hr 07/02/18 07/02/1807/03/19 Range/Units 18:52 21:02 05:20 Hgb 12.7 L (13.0-17.0) g/dL Hct 38.7 (38.0-50.0) % Sodium (136-148) mmol/L Potassium (3.5-5.1) mmol/L Chloride (98-107) mmol/L Carbon Dioxide (21.0-32.0) mmol/L BUN (7.0-18.0) mg/dL Creatinine (0.8-1.3) mg/dL Est Cr Clr Drug Dosing mL/min Estimated GFR (MDRD) ml/min Glucose (74-106) mg/dL POC Glucose 125 H 158 H (60-110) mg/dL Calcium (8.5-10.1) mg/dL 07/03/18 07/03/18 07/03/18 Range/Units 05:20 06:47 11:31 Hgb (13.0-17.0) g/dL Hct (38.0-50.0) % Sodium 140 (136-148) mmol/L Potassium 4.7 (3.5-5.1) mmol/L Chloride 106 (98-107) mmol/L Carbon Dioxide 27.2 (21.0-32.0) mmol/L BUN 18 (7.0-18.0) mg/dL Creatinine 0.9 (0.8-1.3) mg/dL Est Cr Clr Drug Dosing 114.17 mL/min Estimated GFR (MDRD) > 60.0 ml/min Glucose 105 (74-106) mg/dL POC Glucose 96 92 (60-110) mg/dL Calcium 8.4 L (8.5-10.1) mg/dL Med Orders - Current: Current Medications Discontinued Medications Al Hydroxide/Mg Hydroxide (Mag-Al Plus) 30 ml PO Q4H PRN PRN Reason: Indigestion Albuterol (Proventil Neb Soln) 2.5 mg NEB ONETIME PRN PRN Reason: Wheezing Aspirin (Aspirin) 325 mg PO BID [facility] Last Admin: 07/03/18 09:16 Dose: 325 mg Atropine Sulfate (Atropine) 1 mg IVPUSH ASDIRECTED PRN PRN Reason: ACLS Guidelines Atropine Sulfate (Atropine 1 Mg/Ml) 0.5 mg IVPUSH ASDIRECTED PRN PRN Reason: Hypo-Perfusion Atropine Sulfate (Atropine 1 Mg/Ml) 1 mg IVPUSH ASDIRECTED PRN PRN Reason: ACLS Guidelines Bisacodyl (Dulcolax) 10 mg RECTAL DAILY PRN PRN Reason: Constipation Cefazolin Sodium (Ancef) Confirm Administered Dose 2 gm .ROUTE .STK-MED ONE Stop: 07/02/18 12:15 Celecoxib (Celebrex) 200 mg PO BID [facility] Last Admin: 07/03/18 09:16 Dose: 200 mg Dextrose/Water (Dextrose 50% In Water) 50 ml IVPUSH ASDIRECTED PRN PRN Reason: Hypoglycemia Diphenhydramine HCl (Benadryl) 25 - 50 mg PO Q6H PRN PRN Reason: Itching Docusate Sodium (Colace) 100 mg PO BID PRN PRN Reason: Constipation Epinephrine HCl (Adrenalin) 1 mg IVPUSH NOW ONE Stop: 07/02/18 12:56 Last Admin: 07/02/18 15:23 Dose: Not Given Famotidine (Pepcid) 40 mg IVPUSH ONARRIVE [facility] Last Admin: 07/02/18 10:25 Dose: 40 mg Famotidine (Pepcid) 40 mg PO DAILY [facility] Last Admin: 07/03/18 09:16 Dose: 40 mg Fentanyl (Sublimaze) Confirm Administered Dose 100 mcg .ROUTE .STK-MED ONE Stop: 07/02/18 10:48 Fentanyl (Sublimaze) 50 - 100 mcg IVPUSH Q5M PRN PRN Reason: Pain Fentanyl (Sublimaze) Confirm Administered Dose 100 mcg .ROUTE .STK-MED ONE Stop: 07/02/18 13:18 Hydrochlorothiazide (Hydrochlorothiazide) 25 mg PO DAILY [facility] Last Admin: 07/03/18 09:16 Dose: 25 mg Acetaminophen 1,000 mg/ Premix 100 mls @ 400 mls/hr IV ONARRIVE [facility] Last Admin: 07/02/18 10:32 Dose: 400 mls/hr Cefazolin Sodium/Dextrose 2 gm (/ Premix) 50 mls @ 100 mls/hr IV ONCALL [facility] Ropivacaine 49.25 ml/Ketorolac Tromethamine 30 mg/Epinephrine HCl 0.5 mg/ Clonidine HCl 80 mcg/ Sodium Chloride 100 mls @ 50 mls/sec INJECT ASDIRECTED [facility] Lactated Ringer's (Ringers, Lactated) 1,000 mls @ 100 mls/hr IV ASDIRECTED [facility] Last Admin: 07/03/18 03:47 Dose: 100 mls/hr Tranexamic Acid 2,000 mg/ (Sodium Chloride) 120 mls @ 600 mls/hr IV ASDIRECTED ONE Stop: 07/02/18 08:11 Last Admin: 07/02/18 15:22 Dose: Not Given Acetaminophen 1,000 mg/ Premix 100 mls @ 400 mls/hr IV Q6H [facility] Stop: 07/03/18 07:14 Last Admin: 07/03/18 06:42 Dose: 400 mls/hr Cefazolin Sodium/Dextrose 2 gm (/ Premix) 50 mls @ 100 mls/hr IV Q8H [facility] Stop: 07/03/18 05:29 Last Admin: 07/03/18 04:05 Dose: 100 mls/hr Insulin Aspart (Novolog) 0 unit SUBCUT ACBREAKFASTANDBED [facility]; Protocol Last Admin: 07/03/18 06:55 Dose: Not Given Insulin Aspart (Novolog) 0 unit SUBCUT TIDAC [facility]; Protocol Last Admin: 07/03/18 12:03 Dose: Not Given Ketorolac Tromethamine (Toradol) 30 mg IVPUSH ONARRIVE [facility] Last Admin: 07/02/18 10:26 Dose: 30 mg Ketorolac Tromethamine (Toradol) 30 mg IVPUSH Q6H [facility] Stop: 07/03/18 05:00 Last Admin: 07/03/18 00:21 Dose: 30 mg Latanoprost (Xalatan 0.005% Ophth Soln) 0 ml EYEBOTH BEDTIME [facility] Last Admin: 07/02/18 21:43 Dose: Not Given Lidocaine (Xylocaine-Mpf 2%) Confirm Administered Dose 5 ml .ROUTE .STK-MED ONE Stop: 07/02/18 10:48 Midazolam HCl (Versed 1 Mg/Ml) Confirm Administered Dose 2 mg .ROUTE .STK-MED ONE Stop: 07/02/18 10:48 Morphine Sulfate (Morphine Outside Sales Manager 30 Mg In 30 Ml) 30 mg IV ASDIRECTED PRN; Protocol PRN Reason: Pain Stop: 07/03/18 06:00 Last Admin: 07/02/18 14:21 Dose: 30 mg Morphine Sulfate (Morphine) 1 - 3 mg IVPUSH Q3H PRN PRN Reason: Pain Naloxone HCl (Narcan) 0.1 mg IVPUSH ASDIRECTED PRN PRN Reason: Respiratory Depression Non-Formulary Medication (Telmisartan [Micardis]) 80 mg PO DAILY [facility] Ondansetron HCl (Zofran) 4 mg IVPUSH Q6H PRN PRN Reason: Nausea/Vomiting Oxycodone HCl (Oxycodone) 5 - 10 mg PO Q4H PRN PRN Reason: Pain Stop: 07/03/18 06:00 Last Admin: 07/03/18 04:02 Dose: 10 mg Oxycodone/Acetaminophen (Percocet 325-5 Mg) 1 - 2 tab PO Q4H PRN PRN Reason: Pain Last Admin: 07/03/18 13:37 Dose: 2 tab Polyethylene Glycol (Miralax) 17 gm PO DAILY [facility] Last Admin: 07/03/18 09:18 Dose: 17 gm Propofol (Diprivan 20 Ml) Confirm Administered Dose 400 mg .ROUTE .STK-MED ONE Stop: 07/02/18 10:48 Propofol (Diprivan 20 Ml) Confirm Administered Dose 200 mg .ROUTE .STK-MED ONE Stop: 07/02/18 10:50 Scopolamine (Transderm-Scop) 1.5 mg TRDERM ONARRIVE [facility] Last Admin: 07/02/18 10:24 Dose: 1.5 mg Simvastatin (Zocor) 10 mg PO QPM [facility] Last Admin: 07/02/18 18:52 Dose: 10 mg Sodium Chloride (Saline Flush) 10 ml FLUSH ASDIRECTED PRN PRN Reason: Keep Vein Open Sodium Chloride (Saline Flush) 2.5 ml FLUSH ASDIRECTED PRN PRN Reason: Keep Vein Open Tobramycin (Tobramycin) 1,200 mg IV .STK-MED ONE Stop: 07/02/18 09:50 Tranexamic Acid (Cyklokapron) Confirm Administered Dose 2,000 mg .ROUTE .STK- MED ONE Stop: 07/02/18 07:36 Consult PN Assessment/Plan Procedures: Procedures COMPLETE CBC W/AUTO DIFF WBC (01/21/15) COMPREHEN METABOLIC PANEL (01/21/15) LIPID PANEL (01/21/15) MRI JNT OF LWR EXTRE W/O DYE (05/25/18) PT EVAL LOW COMPLEX 20 MIN (05/28/18) ROUTINE VENIPUNCTURE (01/21/15) THERAPEUTIC EXERCISES (06/18/18) VASOPNEUMATIC DEVICE THERAPY (05/28/18) X-RAY EXAM OF KNEE 1 OR 2 (04/03/18) X-RAY EXAM OF KNEE 3 (05/18/18) (1) S/P total knee replacement SNOMED Code(s): 5178060404958, 077613994, 5373831924325 Code(s): Z96.659 - PRESENCE OF UNSPECIFIED ARTIFICIAL KNEE JOINT Priority: High Qualifiers: Laterality: bilateral Qualified Code(s): Z96.653 - Presence of artificial knee joint, bilateral (2) DM type 2 (diabetes mellitus, type 2) SNOMED Code(s): 09187702 Code(s): E11.9 - TYPE 2 DIABETES MELLITUS WITHOUT COMPLICATIONS Priority: High Qualifiers: Diabetes mellitus ferry terminal agent insulin use: without residential use Diabetes mellitus complication status: without complication Qualified Code(s): E11.9 - Type 2 diabetes mellitus without complications (3) HTN (hypertension) SNOMED Code(s): 49403826 Code(s): I10 - ESSENTIAL (PRIMARY) HYPERTENSION Priority: High Qualifiers: Hypertension type: essential hypertension Qualified Code(s): I10 - Essential (primary) hypertension My Orders Last 24 Hours: My Active Orders 07/02/18 15:54 Blood Glucose Check, Bedside [RC] WITHMEALSANDBED Diabetes Education [RC] Click to Edit Glucose Management Sub Q Reflex [OM.PC] Click To Edit
[2018-07-03] MEDS ORDERED: Aspirin 325 MG Tab PO SCH (09:00)
[2018-07-03] MEDS ORDERED: Famotidine 20 MG Tab PO SCH (09:00)
[2018-07-03] MEDS ORDERED: Hydrochlorothiazide 25 MG Tab PO SCH (09:00)
[2018-07-03] MEDS ORDERED: Polyethylene Glycol 3350 Powder 17 GM Packet PO SCH (09:00)
[2018-07-03] MEDS ORDERED: Celecoxib 100 MG Cap PO SCH (09:00)
[2018-07-03] MEDS ORDERED: TELMISARTAN 80 MG PO SCH (09:00)
--- NOTE | 2018-07-03 10:19 | PCM48HPAN ---
Post Anesthesia Note - EVALUATION WITHIN 48HRS OF ANESTHETIC Vital Signs in Normal Range: Yes Patient Participated in Evaluation: Yes Respiratory Function Stable: Yes Airway Patent: Yes Cardiovascular Function Stable: Yes Hydration Status Stable: Yes Pain Control Satisfactory: Yes Nausea and Vomiting Control Satisfactory: Yes Mental Status Recovered: Yes Resp Rate: 15
[2018-07-03] MEDS ORDERED: Insulin Aspart 100 Units/ML 3 ML Pen SUBCUT SCH (11:30)
[2018-07-03 11:55] VITALS: BP 108/72
--- NOTE | 2018-07-03 13:39 | PCM.SURGPN ---
<Milli Morgan - Last Filed: 07/03/18 13:34> - General Info Date of Service: 07/03/18 (0800) Date of Surgery/Procedure: 07/02/18 POD#: 1 Post-Op Diagnosis: degenerative joint disease, LEFT knee, tricompartmental Functional Status: Reports: Pain Controlled, Tolerating Diet, Ambulating (" doing well." ) - Review of Systems General: Reports: No Symptoms. Denies: Fever Pulmonary: Reports: No Symptoms Cardiovascular: Reports: No Symptoms Gastrointestinal: Reports: No Symptoms. Denies: Vomiting Genitourinary: Reports: No Symptoms (abdi catheter removed) Musculoskeletal: Reports: Other (post-surgical knee pain) Skin: Reports: No Symptoms Neurological: Reports: No Symptoms Psychiatric: Reports: No Symptoms - Patient Data Vitals - Most Recent: Last Vital Signs Temp 36.7 C 07/03/18 11:54 Pulse 83 07/03/18 11:54 Resp 18 07/03/18 11:54 BP 108/72 07/03/18 11:54 Pulse Ox 99 07/03/18 11:54 Weight - Most Recent: 99.79 kg I&O - Last 24 Hours: Intake & Output 07/02/18 07/03/18 07/03/18 22:59 06:59 14:59 Intake Total 550 300 Output Total 100 1000 Balance 450 -700 Lab Results Last 24 Hrs: Laboratory Results - last 24 hr 07/02/18 07/02/18 07/03/18 Range/Units 18:52 21:02 05:20 Hgb 12.7 L (13.0-17.0) g/dL Hct 38.7 (38.0-50.0) % Sodium (136-148) mmol/L Potassium (3.5-5.1) mmol/L Chloride (98-107) mmol/L Carbon Dioxide (21.0-32.0) mmol/L BUN (7.0-18.0) mg/dL Creatinine (0.8-1.3) mg/dL Est Cr Clr Drug Dosing mL/min Estimated GFR (MDRD) ml/min Glucose (74-106) mg/dL POC Glucose 125 H 158 H (60-110) mg/dL Calcium (8.5-10.1) mg/dL 07/03/18 07/03/18 07/03/18 Range/Units 05:20 06:47 11:31 Hgb (13.0-17.0) g/dL Hct (38.0-50.0) % Sodium 140 (136-148) mmol/L Potassium 4.7 (3.5-5.1) mmol/L Chloride 106 (98-107) mmol/L Carbon Dioxide 27.2 (21.0-32.0) mmol/L BUN 18 (7.0-18.0) mg/dL Creatinine 0.9 (0.8-1.3) mg/dL Est Cr Clr Drug Dosing 114.17 mL/min Estimated GFR (MDRD) > 60.0 ml/min Glucose 105 (74-106) mg/dL POC Glucose 96 92 (60-110) mg/dL Calcium 8.4 L (8.5-10.1) mg/dL Med Orders - Current: Current Medications Al Hydroxide/Mg Hydroxide (Mag-Al Plus) 30 ml PO Q4H PRN PRN Reason: Indigestion Aspirin (Aspirin) 325 mg PO BID [facility] Last Admin: 07/03/18 09:16 Dose: 325 mg Bisacodyl (Dulcolax) 10 mg RECTAL DAILY PRN PRN Reason: Constipation Celecoxib (Celebrex) 200 mg PO BID [facility] Last Admin: 07/03/18 09:16 Dose: 200 mg Diphenhydramine HCl (Benadryl) 25 - 50 mg PO Q6H PRN PRN Reason: Itching Docusate Sodium (Colace) 100 mg PO BID PRN PRN Reason: Constipation Famotidine (Pepcid) 40 mg PO DAILY [facility] Last Admin: 07/03/18 09:16 Dose: 40 mg Hydrochlorothiazide (Hydrochlorothiazide) 25 mg PO DAILY [facility] Last Admin: 07/03/18 09:16 Dose: 25 mg Lactated Ringer's (Ringers, Lactated) 1,000 mls @ 100 mls/hr IV ASDIRECTED [facility] Last Admin: 07/03/18 03:47 Dose: 100 mls/hr Insulin Aspart (Novolog) 0 unit SUBCUT TIDAC [facility]; Protocol Last Admin: 07/03/18 12:03 Dose: Not Given Latanoprost (Xalatan 0.005% Ophth Soln) 0 ml EYEBOTH BEDTIME [facility] Last Admin: 07/02/18 21:43 Dose: Not Given Morphine Sulfate (Morphine) 1 - 3 mg IVPUSH Q3H PRN PRN Reason: Pain Non-Formulary Medication (Telmisartan [Micardis]) 80 mg PO DAILY [facility] Ondansetron HCl (Zofran) 4 mg IVPUSH Q6H PRN PRN Reason: Nausea/Vomiting Oxycodone/Acetaminophen (Percocet 325-5 Mg) 1 - 2 tab PO Q4H PRN PRN Reason: Pain Polyethylene Glycol (Miralax) 17 gm PO DAILY [facility] Last Admin: 07/03/18 09:18 Dose: 17 gm Scopolamine (Transderm-Scop) 1.5 mg TRDERM ONARRIVE [facility] Last Admin: 07/02/18 10:24 Dose: 1.5 mg Simvastatin (Zocor) 10 mg PO QPM [facility] Last Admin: 07/02/18 18:52 Dose: 10 mg Sodium Chloride (Saline Flush) 10 ml FLUSH ASDIRECTED PRN PRN Reason: Keep Vein Open Sodium Chloride (Saline Flush) 2.5 ml FLUSH ASDIRECTED PRN PRN Reason: Keep Vein Open Discontinued Medications Albuterol (Proventil Neb Soln) 2.5 mg NEB ONETIME PRN PRN Reason: Wheezing Atropine Sulfate (Atropine) 1 mg IVPUSH ASDIRECTED PRN PRN Reason: ACLS Guidelines Atropine Sulfate (Atropine 1 Mg/Ml) 0.5 mg IVPUSH ASDIRECTED PRN PRN Reason: Hypo-Perfusion Atropine Sulfate (Atropine 1 Mg/Ml) 1 mg IVPUSH ASDIRECTED PRN PRN Reason: ACLS Guidelines Cefazolin Sodium (Ancef) Confirm Administered Dose 2 gm .ROUTE .STK-MED ONE Stop: 07/02/18 12:15 Dextrose/Water (Dextrose 50% In Water) 50 ml IVPUSH ASDIRECTED PRN PRN Reason: Hypoglycemia Epinephrine HCl (Adrenalin) 1 mg IVPUSH NOW ONE Stop: 07/02/18 12:56 Last Admin: 07/02/18 15:23 Dose: Not Given Famotidine (Pepcid) 40 mg IVPUSH ONARRIVE [facility] Last Admin: 07/02/18 10:25 Dose: 40 mg Fentanyl (Sublimaze) Confirm Administered Dose 100 mcg .ROUTE .STK-MED ONE Stop: 07/02/18 10:48 Fentanyl (Sublimaze) 50 - 100 mcg IVPUSH Q5M PRN PRN Reason: Pain Fentanyl (Sublimaze) Confirm Administered Dose 100 mcg .ROUTE .STK-MED ONE Stop: 07/02/18 13:18 Acetaminophen 1,000 mg/ Premix 100 mls @ 400 mls/hr IV ONARRIVE [facility] Last Admin: 07/02/18 10:32 Dose: 400 mls/hr Cefazolin Sodium/Dextrose 2 gm (/ Premix) 50 mls @ 100 mls/hr IV ONCALL [facility] Ropivacaine 49.25 ml/Ketorolac Tromethamine 30 mg/Epinephrine HCl 0.5 mg/ Clonidine HCl 80 mcg/ Sodium Chloride 100 mls @ 50 mls/sec INJECT ASDIRECTED [facility] Tranexamic Acid 2,000 mg/ (Sodium Chloride) 120 mls @ 600 mls/hr IV ASDIRECTED ONE Stop: 07/02/18 08:11 Last Admin: 07/02/18 15:22 Dose: Not Given Acetaminophen 1,000 mg/ Premix 100 mls @ 400 mls/hr IV Q6H [facility] Stop: 07/03/18 07:14 Last Admin: 07/03/18 06:42 Dose: 400 mls/hr Cefazolin Sodium/Dextrose 2 gm (/ Premix) 50 mls @ 100 mls/hr IV Q8H [facility] Stop: 07/03/18 05:29 Last Admin: 07/03/18 04:05 Dose: 100 mls/hr Insulin Aspart (Novolog) 0 unit SUBCUT ACBREAKFASTANDBED [facility]; Protocol Last Admin: 07/03/18 06:55 Dose: Not Given Ketorolac Tromethamine (Toradol) 30 mg IVPUSH ONARRIVE [facility] Last Admin: 07/02/18 10:26 Dose: 30 mg Ketorolac Tromethamine (Toradol) 30 mg IVPUSH Q6H [facility] Stop: 07/03/18 05:00 Last Admin: 07/03/18 00:21 Dose: 30 mg Lidocaine (Xylocaine-Mpf 2%) Confirm Administered Dose 5 ml .ROUTE .STK-MED ONE Stop: 07/02/18 10:48 Midazolam HCl (Versed 1 Mg/Ml) Confirm Administered Dose 2 mg .ROUTE .STK-MED ONE Stop: 07/02/18 10:48 Morphine Sulfate (Morphine Supervisor Frame Assembly 30 Mg In 30 Ml) 30 mg IV ASDIRECTED PRN; Protocol PRN Reason: Pain Stop: 07/03/18 06:00 Last Admin: 07/02/18 14:21 Dose: 30 mg Naloxone HCl (Narcan) 0.1 mg IVPUSH ASDIRECTED PRN PRN Reason: Respiratory Depression Oxycodone HCl (Oxycodone) 5 - 10 mg PO Q4H PRN PRN Reason: Pain Stop: 07/03/18 06:00 Last Admin: 07/03/18 04:02 Dose: 10 mg Propofol (Diprivan 20 Ml) Confirm Administered Dose 400 mg .ROUTE .STK-MED ONE Stop: 07/02/18 10:48 Propofol (Diprivan 20 Ml) Confirm Administered Dose 200 mg .ROUTE .STK-MED ONE Stop: 07/02/18 10:50 Tobramycin (Tobramycin) 1,200 mg IV .STK-MED ONE Stop: 07/02/18 09:50 Tranexamic Acid (Cyklokapron) Confirm Administered Dose 2,000 mg .ROUTE .STK- MED ONE Stop: 07/02/18 07:36 - Exam Wound/Incisions: Dressing Dry and Intact (small amount of bloody drainage after surgical dressing removed. ). No: Erythema General: Alert, Oriented HEENT: Pupils Equal, Mucous Membr. Moist/Felt Lungs: Normal Respiratory Effort Cardiovascular: Regular Rate GI/Abdominal Exam: Soft Extremities: Normal Capillary Refill (AT/EHL/gastroc 5/5 Sensation grossly intact to left foot) Skin: Warm, Dry Neurological: No New Focal Deficit Psy/Mental Status: Alert, Normal Affect, Normal Mood - Problem List Review Problem List Initiated/Reviewed/Updated: Yes - My Orders Last 24 Hours: Active Orders 24 hr Category Date Time Status Blood Glucose Check, Bedside [RC] WITHMEALSANDBED Care 07/02/18 15:54 Active Communication Order [RC] PRN Care 07/02/18 13:41 Active Communication Order [RC] PRN Care 07/02/18 13:41 Active Diabetes Education [RC] Click to Edit Care 07/02/18 15:54 Active Neurovascular Check [RC] Q2HR Care 07/02/18 13:41 Active Notify Provider Consults [RC] ASDIRECTED Care 07/02/18 13:46 Active Notify Provider Vital Signs [RC] ASDIRECTED Care 07/02/18 12:56 Active RT Aerosol Therapy [RC] ASDIRECTED Care 07/02/18 12:56 Active RT Aerosol Therapy [RC] ASDIRECTED Care 07/02/18 12:56 Active RT Aerosol Therapy [RC] ASDIRECTED Care 07/02/18 12:56 Active RT Aerosol Therapy [RC] ASDIRECTED Care 07/02/18 12:56 Active RT Incentive Spirometry [RC] Q1HWA Care 07/02/18 13:41 Active Urinary Catheter Removal [RC] ASDIRECTED Care 07/03/18 13:41 Active Vital Signs [RC] Q4H Care 07/02/18 13:41 Active Vital Signs [RC] Q5M Care 07/02/18 12:56 Active Wound Care [RC] Q12H Care 07/02/18 13:41 Active Consult to Physician [CONS] Routine Cons 07/02/18 13:41 Active PT Evaluation and Treatment [CONS] Routine Cons 07/02/18 13:41 Active [employer] Diet [DIET] Diet 07/02/18 Dinner Active BMP [BASIC METABOLIC PANEL,BMP] [CHEM] AM Lab 07/04/18 05:11 Ordered HEMOGLOBIN/HEMATOCRIT,HH [HEME] DAILY Lab 07/04/18 06:00 Ordered Acetaminophen/oxyCODONE [Percocet 325-5 MG] Med 07/03/18 06:00 Active 1 - 2 tab PO Q4H PRN Alum Hydrox/Mag Hydrox/Simeth [Mag-Al Plus] Med 07/02/18 13:41 Active 30 ml PO Q4H PRN Aspirin Med 07/03/18 09:00 Active 325 mg PO BID Bisacodyl [Dulcolax] Med 07/02/18 13:41 Active 10 mg RECTAL DAILY PRN Celecoxib [CeleBREX] Med 07/03/18 09:00 Active 200 mg PO BID Docusate Sodium [Colace] Med 07/02/18 21:41 Active 100 mg PO BID PRN Famotidine [Pepcid] Med 07/03/18 09:00 Active 40 mg PO DAILY Insulin Aspart [NovoLOG] Med 07/03/18 11:30 Active See Protocol SUBCUT TIDAC Latanoprost [Xalatan 0.005% Oph Soln] Med 07/02/18 21:00 Active 0 ml EYEBOTH BEDTIME Morphine Med 07/03/18 06:00 Active 1 - 3 mg IVPUSH Q3H PRN Ondansetron [Zofran] Med 07/02/18 13:41 Active 4 mg IVPUSH Q6H PRN Polyethylene Glycol 3350 [MiraLAX] Med 07/03/18 09:00 Active 17 gm PO DAILY Simvastatin [Zocor] Med 07/02/18 18:00 Active 10 mg PO QPM Sodium Chloride 0.9% [Saline Flush] Med 07/02/18 13:41 Active 10 ml FLUSH ASDIRECTED PRN Sodium Chloride 0.9% [Saline Flush] Med 07/02/18 13:41 Active 2.5 ml FLUSH ASDIRECTED PRN Telmisartan [Micardis] Med 07/03/18 09:00 Pending 80 mg PO DAILY diphenhydrAMINE [Benadryl] Med 07/02/18 13:41 Active 25 - 50 mg PO Q6H PRN hydroCHLOROthiazide Med 07/03/18 09:00 Active 25 mg PO DAILY Convert IV to Saline Lock [OM.PC] PRN Oth 07/03/18 06:00 Ordered Glucose Management Sub Q Reflex [OM.PC] Click To Edit Oth 07/02/18 15:54 Ordered Ice Therapy [OM.PC] Routine Oth 07/02/18 13:41 Ordered Medication Orders Al Hydroxide/Mg Hydroxide (Mag-Al Plus) 30 ml PO Q4H PRN PRN Reason: Indigestion Aspirin (Aspirin) 325 mg PO BID [facility] Last Admin: 07/03/18 09:16 Dose: 325 mg Bisacodyl (Dulcolax) 10 mg RECTAL DAILY PRN PRN Reason: Constipation Celecoxib (Celebrex) 200 mg PO BID [facility] Last Admin: 07/03/18 09:16 Dose: 200 mg Diphenhydramine HCl (Benadryl) 25 - 50 mg PO Q6H PRN PRN Reason: Itching Docusate Sodium (Colace) 100 mg PO BID PRN PRN Reason: Constipation Famotidine (Pepcid) 40 mg PO DAILY [facility] Last Admin: 07/03/18 09:16 Dose: 40 mg Hydrochlorothiazide (Hydrochlorothiazide) 25 mg PO DAILY [facility] Last Admin: 07/03/18 09:16 Dose: 25 mg Lactated Ringer's (Ringers, Lactated) 1,000 mls @ 100 mls/hr IV ASDIRECTED [facility] Last Admin: 07/03/18 03:47 Dose: 100 mls/hr Infusion: 07/03/18 01:06 Dose: 100 mls/hr Admin: 07/02/18 15:06 Dose: 100 mls/hr Infusion: 07/02/18 15:06 Dose: 100 mls/hr Admin: 07/02/18 10:23 Dose: 100 mls/hr Insulin Aspart (Novolog) 0 unit SUBCUT TIDAC [facility]; Protocol Last Admin: 07/03/18 12:03 Dose: Not Given Latanoprost (Xalatan 0.005% Oph Soln) 0 ml EYEBOTH BEDTIME [facility] Last Admin: 07/02/18 21:43 Dose: Not Given Morphine Sulfate (Morphine) 1 - 3 mg IVPUSH Q3H PRN PRN Reason: Pain Non-Formulary Medication (Telmisartan [Micardis]) 80 mg PO DAILY [facility] Ondansetron HCl (Zofran) 4 mg IVPUSH Q6H PRN PRN Reason: Nausea/Vomiting Oxycodone/Acetaminophen (Percocet 325-5 Mg) 1 - 2 tab PO Q4H PRN PRN Reason: Pain Polyethylene Glycol (Miralax) 17 gm PO DAILY [facility] Last Admin: 07/03/18 09:18 Dose: 17 gm Scopolamine (Transderm-Scop) 1.5 mg TRDERM ONARRIVE [facility] Last Admin: 07/02/18 10:24 Dose: 1.5 mg Simvastatin (Zocor) 10 mg PO QPM [facility] Last Admin: 07/02/18 18:52 Dose: 10 mg Sodium Chloride (Saline Flush) 10 ml FLUSH ASDIRECTED PRN PRN Reason: Keep Vein Open Sodium Chloride (Saline Flush) 2.5 ml FLUSH ASDIRECTED PRN PRN Reason: Keep Vein Open - Assessment Assessment (Free Text/Narrative):: s/p LEFT TKA post-hemorrhagic anemia - Plan Plan (Free Text/Narrative):: Pt reports doing well with no acute overnight concerns. Up in chair for breakfast. No N/V. Abdi catheter removed. Surgical dressing removed. Incision clean and intact. Small amount of bloody drainage. AquaCell applied. Pain has been controlled with oxycodone through the night. H/H stable. will have PT this morning. Has been up in room with staff and walker. Pt desires discharge home today. Will follow up after PT to ensure pain control remains adequate. Hospitalist has been consulted for diabetic/medical management, and clinical nurse educator in his room during rounds. ASA start today for DVT prophylaxis. 24 hours of IV antibiotic completed. <[place] Norris R - Last Filed: 07/03/18 14:14> - Patient Data Vitals - Most Recent: Last Vital Signs Temp 98.1 F 07/03/18 11:54 Pulse 83 07/03/18 11:54 Resp 18 07/03/18 11:54 BP 108/72 07/03/18 11:54 Pulse Ox 99 07/03/18 11:54 I&O - Last 24 Hours: Intake & Output 07/02/18 07/03/18 07/03/18 22:59 06:59 14:59 Intake Total 550 300 586 Output Total 100 1000 Balance 450 -700 586 Lab Results Last 24 Hrs: Laboratory Results - last 24 hr 07/02/18 07/02/18 07/03/18 Range/Units 18:52 21:02 05:20 Hgb 12.7 L (13.0-17.0) g/dL Hct 38.7 (38.0-50.0) % Sodium (136-148) mmol/L Potassium (3.5-5.1) mmol/L Chloride (98-107) mmol/L Carbon Dioxide (21.0-32.0) mmol/L BUN (7.0-18.0) mg/dL Creatinine (0.8-1.3) mg/dL Est Cr Clr Drug Dosing mL/min Estimated GFR (MDRD) ml/min Glucose (74-106) mg/dL POC Glucose 125 H 158 H (60-110) mg/dL Calcium (8.5-10.1) mg/dL 07/03/18 07/03/18 07/03/18 Range/Units 05:20 06:47 11:31 Hgb (13.0-17.0) g/dL Hct (38.0-50.0) % Sodium 140 (136-148) mmol/L Potassium 4.7 (3.5-5.1) mmol/L Chloride 106 (98-107) mmol/L Carbon Dioxide 27.2 (21.0-32.0) mmol/L BUN 18 (7.0-18.0) mg/dL Creatinine 0.9 (0.8-1.3) mg/dL Est Cr Clr Drug Dosing 114.17 mL/min Estimated GFR (MDRD) > 60.0 ml/min Glucose 105 (74-106) mg/dL POC Glucose 96 92 (60-110) mg/dL Calcium 8.4 L (8.5-10.1) mg/dL Med Orders - Current: Current Medications Al Hydroxide/Mg Hydroxide (Mag-Al Plus) 30 ml PO Q4H PRN PRN Reason: Indigestion Aspirin (Aspirin) 325 mg PO BID [facility] Last Admin: 07/03/18 09:16 Dose: 325 mg Bisacodyl (Dulcolax) 10 mg RECTAL DAILY PRN PRN Reason: Constipation Celecoxib (Celebrex) 200 mg PO BID [facility] Last Admin: 07/03/18 09:16 Dose: 200 mg Diphenhydramine HCl (Benadryl) 25 - 50 mg PO Q6H PRN PRN Reason: Itching Docusate Sodium (Colace) 100 mg PO BID PRN PRN Reason: Constipation Famotidine (Pepcid) 40 mg PO DAILY [facility] Last Admin: 07/03/18 09:16 Dose: 40 mg Hydrochlorothiazide (Hydrochlorothiazide) 25 mg PO DAILY [facility] Last Admin: 07/03/18 09:16 Dose: 25 mg Lactated Ringer's (Ringers, Lactated) 1,000 mls @ 100 mls/hr IV ASDIRECTED [facility] Last Admin: 07/03/18 03:47 Dose: 100 mls/hr Insulin Aspart (Novolog) 0 unit SUBCUT TIDAC [facility]; Protocol Last Admin: 07/03/18 12:03 Dose: Not Given Latanoprost (Xalatan 0.005% Ophth Soln) 0 ml EYEBOTH BEDTIME [facility] Last Admin: 07/02/18 21:43 Dose: Not Given Morphine Sulfate (Morphine) 1 - 3 mg IVPUSH Q3H PRN PRN Reason: Pain Non-Formulary Medication (Telmisartan [Micardis]) 80 mg PO DAILY [facility] Ondansetron HCl (Zofran) 4 mg IVPUSH Q6H PRN PRN Reason: Nausea/Vomiting Oxycodone/Acetaminophen (Percocet 325-5 Mg) 1 - 2 tab PO Q4H PRN PRN Reason: Pain Last Admin: 07/03/18 13:37 Dose: 2 tab Polyethylene Glycol (Miralax) 17 gm PO DAILY [facility] Last Admin: 07/03/18 09:18 Dose: 17 gm Scopolamine (Transderm-Scop) 1.5 mg TRDERM ONARRIVE [facility] Last Admin: 07/02/18 10:24 Dose: 1.5 mg Simvastatin (Zocor) 10 mg PO QPM [facility] Last Admin: 07/02/18 18:52 Dose: 10 mg Sodium Chloride (Saline Flush) 10 ml FLUSH ASDIRECTED PRN PRN Reason: Keep Vein Open Sodium Chloride (Saline Flush) 2.5 ml FLUSH ASDIRECTED PRN PRN Reason: Keep Vein Open Discontinued Medications Albuterol (Proventil Neb Soln) 2.5 mg NEB ONETIME PRN PRN Reason: Wheezing Atropine Sulfate (Atropine) 1 mg IVPUSH ASDIRECTED PRN PRN Reason: ACLS Guidelines Atropine Sulfate (Atropine 1 Mg/Ml) 0.5 mg IVPUSH ASDIRECTED PRN PRN Reason: Hypo-Perfusion Atropine Sulfate (Atropine 1 Mg/Ml) 1 mg IVPUSH ASDIRECTED PRN PRN Reason: ACLS Guidelines Cefazolin Sodium (Ancef) Confirm Administered Dose 2 gm .ROUTE .STK-MED ONE Stop: 07/02/18 12:15 Dextrose/Water (Dextrose 50% In Water) 50 ml IVPUSH ASDIRECTED PRN PRN Reason: Hypoglycemia Epinephrine HCl (Adrenalin) 1 mg IVPUSH NOW ONE Stop: 07/02/18 12:56 Last Admin: 07/02/18 15:23 Dose: Not Given Famotidine (Pepcid) 40 mg IVPUSH ONARRIVE [facility] Last Admin: 07/02/18 10:25 Dose: 40 mg Fentanyl (Sublimaze) Confirm Administered Dose 100 mcg .ROUTE .STK-MED ONE Stop: 07/02/18 10:48 Fentanyl (Sublimaze) 50 - 100 mcg IVPUSH Q5M PRN PRN Reason: Pain Fentanyl (Sublimaze) Confirm Administered Dose 100 mcg .ROUTE .STK-MED ONE Stop: 07/02/18 13:18 Acetaminophen 1,000 mg/ Premix 100 mls @ 400 mls/hr IV ONARRIVE [facility] Last Admin: 07/02/18 10:32 Dose: 400 mls/hr Cefazolin Sodium/Dextrose 2 gm (/ Premix) 50 mls @ 100 mls/hr IV ONCALL [facility] Ropivacaine 49.25 ml/Ketorolac Tromethamine 30 mg/Epinephrine HCl 0.5 mg/ Clonidine HCl 80 mcg/ Sodium Chloride 100 mls @ 50 mls/sec INJECT ASDIRECTED [facility] Tranexamic Acid 2,000 mg/ (Sodium Chloride) 120 mls @ 600 mls/hr IV ASDIRECTED ONE Stop: 07/02/18 08:11 Last Admin: 07/02/18 15:22 Dose: Not Given Acetaminophen 1,000 mg/ Premix 100 mls @ 400 mls/hr IV Q6H [facility] Stop: 07/03/18 07:14 Last Admin: 07/03/18 06:42 Dose: 400 mls/hr Cefazolin Sodium/Dextrose 2 gm (/ Premix) 50 mls @ 100 mls/hr IV Q8H [facility] Stop: 07/03/18 05:29 Last Admin: 07/03/18 04:05 Dose: 100 mls/hr Insulin Aspart (Novolog) 0 unit SUBCUT ACBREAKFASTANDBED [facility]; Protocol Last Admin: 07/03/18 06:55 Dose: Not Given Ketorolac Tromethamine (Toradol) 30 mg IVPUSH ONARRIVE [facility] Last Admin: 07/02/18 10:26 Dose: 30 mg Ketorolac Tromethamine (Toradol) 30 mg IVPUSH Q6H [facility] Stop: 07/03/18 05:00 Last Admin: 07/03/18 00:21 Dose: 30 mg Lidocaine (Xylocaine-Mpf 2%) Confirm Administered Dose 5 ml .ROUTE .STK-MED ONE Stop: 07/02/18 10:48 Midazolam HCl (Versed 1 Mg/Ml) Confirm Administered Dose 2 mg .ROUTE .STK-MED ONE Stop: 07/02/18 10:48 Morphine Sulfate (Morphine Supervisor Frame Assembly 30 Mg In 30 Ml) 30 mg IV ASDIRECTED PRN; Protocol PRN Reason: Pain Stop: 07/03/18 06:00 Last Admin: 07/02/18 14:21 Dose: 30 mg Naloxone HCl (Narcan) 0.1 mg IVPUSH ASDIRECTED PRN PRN Reason: Respiratory Depression Oxycodone HCl (Oxycodone) 5 - 10 mg PO Q4H PRN PRN Reason: Pain Stop: 07/03/18 06:00 Last Admin: 07/03/18 04:02 Dose: 10 mg Propofol (Diprivan 20 Ml) Confirm Administered Dose 400 mg .ROUTE .STK-MED ONE Stop: 07/02/18 10:48 Propofol (Diprivan 20 Ml) Confirm Administered Dose 200 mg .ROUTE .STK-MED ONE Stop: 07/02/18 10:50 Tobramycin (Tobramycin) 1,200 mg IV .STK-MED ONE Stop: 07/02/18 09:50 Tranexamic Acid (Cyklokapron) Confirm Administered Dose 2,000 mg .ROUTE .STK- MED ONE Stop: 07/02/18 07:36 - My Orders Last 24 Hours: Active Orders 24 hr Category Date Time Status Blood Glucose Check, Bedside [RC] WITHMEALSANDBED Care 07/02/18 15:54 Active Communication Order [RC] PRN Care 07/02/18 13:41 Active Communication Order [RC] PRN Care 07/02/18 13:41 Active Diabetes Education [RC] Click to Edit Care 07/02/18 15:54 Active Neurovascular Check [RC] Q2HR Care 07/02/18 13:41 Active Notify Provider Consults [RC] ASDIRECTED Care 07/02/18 13:46 Active RT Incentive Spirometry [RC] Q1HWA Care 07/02/18 13:41 Active Vital Signs [RC] Q4H Care 07/02/18 13:41 Active Wound Care [RC] Q12H Care 07/02/18 13:41 Active Consult to Physician [CONS] Routine Cons 07/02/18 13:41 Active PT Evaluation and Treatment [CONS] Routine Cons 07/02/18 13:41 Active [place] Diet [DIET] Diet 07/02/18 Dinner Active BMP [BASIC METABOLIC PANEL,BMP] [CHEM] AM Lab 07/04/18 05:11 Ordered HEMOGLOBIN/HEMATOCRIT,HH [HEME] DAILY Lab 07/04/18 06:00 Ordered Acetaminophen/oxyCODONE [Percocet 325-5 MG] Med 07/03/18 06:00 Active 1 - 2 tab PO Q4H PRN Alum Hydrox/Mag Hydrox/Simeth [Mag-Al Plus] Med 07/02/18 13:41 Active 30 ml PO Q4H PRN Aspirin Med 07/03/18 09:00 Active 325 mg PO BID Bisacodyl [Dulcolax] Med 07/02/18 13:41 Active 10 mg RECTAL DAILY PRN Celecoxib [CeleBREX] Med 07/03/18 09:00 Active 200 mg PO BID Docusate Sodium [Colace] Med 07/02/18 21:41 Active 100 mg PO BID PRN Famotidine [Pepcid] Med 07/03/18 09:00 Active 40 mg PO DAILY Insulin Aspart [NovoLOG] Med 07/03/18 11:30 Active See Protocol SUBCUT TIDAC Latanoprost [Xalatan 0.005% Ophth Soln] Med 07/02/18 21:00 Active 0 ml EYEBOTH BEDTIME Morphine Med 07/03/18 06:00 Active 1 - 3 mg IVPUSH Q3H PRN Ondansetron [Zofran] Med 07/02/18 13:41 Active 4 mg IVPUSH Q6H PRN Polyethylene Glycol 3350 [MiraLAX] Med 07/03/18 09:00 Active 17 gm PO DAILY Simvastatin [Zocor] Med 07/02/18 18:00 Active 10 mg PO QPM Sodium Chloride 0.9% [Saline Flush] Med 07/02/18 13:41 Active 10 ml FLUSH ASDIRECTED PRN Sodium Chloride 0.9% [Saline Flush] Med 07/02/18 13:41 Active 2.5 ml FLUSH ASDIRECTED PRN Telmisartan [Micardis] Med 07/03/18 09:00 Pending 80 mg PO DAILY diphenhydrAMINE [Benadryl] Med 07/02/18 13:41 Active 25 - 50 mg PO Q6H PRN hydroCHLOROthiazide Med 07/03/18 09:00 Active 25 mg PO DAILY Convert IV to Saline Lock [OM.PC] PRN Oth 07/03/18 06:00 Ordered Glucose Management Sub Q Reflex [OM.PC] Click To Edit Oth 07/02/18 15:54 Ordered Ice Therapy [OM.PC] Routine Ot 07/02/18 13:41 Ordered Medication Orders Al Hydroxide/Mg Hydroxide (Mag-Al Plus) 30 ml PO Q4H PRN PRN Reason: Indigestion Aspirin (Aspirin) 325 mg PO BID [facility] Last Admin: 07/03/18 09:16 Dose: 325 mg Bisacodyl (Dulcolax) 10 mg RECTAL DAILY PRN PRN Reason: Constipation Celecoxib (Celebrex) 200 mg PO BID [facility] Last Admin: 07/03/18 09:16 Dose: 200 mg Diphenhydramine HCl (Benadryl) 25 - 50 mg PO Q6H PRN PRN Reason: Itching Docusate Sodium (Colace) 100 mg PO BID PRN PRN Reason: Constipation Famotidine (Pepcid) 40 mg PO DAILY [facility] Last Admin: 07/03/18 09:16 Dose: 40 mg Hydrochlorothiazide (Hydrochlorothiazide) 25 mg PO DAILY [facility] Last Admin: 07/03/18 09:16 Dose: 25 mg Lactated Ringer's (Ringers, Lactated) 1,000 mls @ 100 mls/hr IV ASDIRECTED [facility] Last Admin: 07/03/18 03:47 Dose: 100 mls/hr Infusion: 07/03/18 01:06 Dose: 100 mls/hr Admin: 07/02/18 15:06 Dose: 100 mls/hr Infusion: 07/02/18 15:06 Dose: 100 mls/hr Admin: 07/02/18 10:23 Dose: 100 mls/hr Insulin Aspart (Novolog) 0 unit SUBCUT TIDAC [facility]; Protocol Last Admin: 07/03/18 12:03 Dose: Not Given Latanoprost (Xalatan 0.005% Ophth Soln) 0 ml EYEBOTH BEDTIME [facility] Last Admin: 07/02/18 21:43 Dose: Not Given Morphine Sulfate (Morphine) 1 - 3 mg IVPUSH Q3H PRN PRN Reason: Pain Non-Formulary Medication (Telmisartan [Micardis]) 80 mg PO DAILY [facility] Ondansetron HCl (Zofran) 4 mg IVPUSH Q6H PRN PRN Reason: Nausea/Vomiting Oxycodone/Acetaminophen (Percocet 325-5 Mg) 1 - 2 tab PO Q4H PRN PRN Reason: Pain Last Admin: 07/03/18 13:37 Dose: 2 tab Polyethylene Glycol (Miralax) 17 gm PO DAILY [facility] Last Admin: 07/03/18 09:18 Dose: 17 gm Scopolamine (Transderm-Scop) 1.5 mg TRDERM ONARRIVE [facility] Last Admin: 07/02/18 10:24 Dose: 1.5 mg Simvastatin (Zocor) 10 mg PO QPM [facility] Last Admin: 07/02/18 18:52 Dose: 10 mg Sodium Chloride (Saline Flush) 10 ml FLUSH ASDIRECTED PRN PRN Reason: Keep Vein Open Sodium Chloride (Saline Flush) 2.5 ml FLUSH ASDIRECTED PRN PRN Reason: Keep Vein Open - Plan Plan (Free Text/Narrative):: 1300 Patient seen and examined. Agree with the above note. His pain has been well- controlled. He has been up walking without difficulty. He has no other complaints today. Exam of the knee shows a dressing to be dry and intact. He has no calf tenderness. AT/EHL/gastroc 5/5. Sensation grossly intact. DP/PT pulses 2+. POD #1 1. continue PT--WBAT 2. encouraged po pain meds 3. ASA for DVT prophylaxis 4. plan discharge home today iker
--- NOTE | 2018-07-04 12:20 | PCM.DCSUM1 ---
Discharge Summary - Hospital Course Free Text/Narrative:: Candelario underwent LEFT TOTAL KNEE ARTHROPLASTY using patient specific instrumentation with spinal anesthesia on 07/02/[address] Albania Norris. No surgical complications, and transferred to med/surg for postoperative care. Post operative diagnosis : degenerative joint disease, left knee, tricompartmental. He also received hospitalist consult for medical management of DM Type 2. - Discharge Data Discharge Date: 07/03/18 Discharge Disposition: Home, Self-Care 01 Condition: Good - Patient Summary/Data Operative Procedure(s) Performed: L TKa Complications: none postoperatively or during hospital stay Consults: Consultations 07/02/18 13:41 Consult to Physician [CONS] Routine PT Evaluation and Treatment [CONS] Routine Hospital Course: Postoperatively, he did well. No concerns with N/V. Was tolerating po food/ fluids well, and POD#1, abdi catheter and IV fluids discontinued. VSS/afebrile. Hg/Hct 12.7/38/7 with normal BUN/Creat. Had physical therapy POD#1, ambulating well with use of walker. Pain well controlled with oral medications. VSS/afebrile during hospital stay. Surgical dressing CDI, removed and AquaCell dressing applied POD#1. He had small amount of bloody discharge with dressing change. Incision well approximated with sutures. Completed 24 hours of IV antibiotic coverage. He had hospitalist consultation for medical management of Type2 DM. Utilized [facility] therapy consistently. Wore support stocking with SCDs. ASA started POD#1 for DVT prophylaxis. He felt ready for discharge POD#1, reporting that he 'felt well." Return appts scheduled. Pain Rx written along with medications to prevent constipation. Outpatient physical therapy scheduled at [email or web address]. He already has FWW at home for ambulation. - Patient Instructions Other/Special Instructions: Refer to Dr. Albania Norris's Post-operative patient instructions for TOTAL KNEE ARTHROPLASTY - Discharge Plan Prescriptions/Med Rec: Acetaminophen/oxyCODONE [Percocet 325-5 MG] 1 - 2 tab PO Q4H PRN #60 tablet PRN Reason: Pain Aspirin 325 mg PO BID #60 tablet Docusate Sodium [Colace] 100 mg PO BID PRN #60 cap PRN Reason: Constipation Insulin Lispro [HumaLOG] 100 unit SQ ASDIRECTED #1 ml Polyethylene Glycol 3350 [MiraLAX] 17 gm PO DAILY #600 gram Home Medications: Home Meds Folic Acid 0.4 mg PO DAILY 02/06/15 [History] Hydrochlorothiazide 25 mg PO DAILY 02/06/15 [History] Multivitamin [Multi-Vitamin Daily] 1 tab PO DAILY 02/06/15 [History] Telmisartan [Micardis] 80 mg PO DAILY 02/06/15 [History] Latanoprost/Pf [Latanoprost 0.005% Eye Drop] 1 drop EYEBOTH BEDTIME 05/08/18 [ History] Saxagliptin HCl [Onglyza] 5 mg PO DAILY 05/08/18 [History] Simvastatin 10 mg PO QPM 05/08/18 [History] metFORMIN HCl [Metformin ER Osmotic] 1,000 mg PO QAM 05/08/18 [History] metFORMIN HCl [Metformin ER Osmotic] 1,500 mg PO QPM 05/08/18 [History] Celecoxib [CeleBREX] 200 mg PO DAILY #30 cap 05/09/18 [Rx] Acetaminophen/oxyCODONE [Percocet 325-5 MG] 1 - 2 tab PO Q4H PRN #60 tablet 10/14 [Rx] Aspirin 325 mg PO BID #60 tablet 07/03/18 [Rx] Docusate Sodium [Colace] 100 mg PO BID PRN #60 cap 07/03/18 [Rx] Insulin Lispro [HumaLOG] 100 unit SQ ASDIRECTED #1 ml 07/03/18 [Rx] Polyethylene Glycol 3350 [MiraLAX] 17 gm PO DAILY #600 gram 07/03/18 [Rx] Patient Handouts: Acetaminophen; Oxycodone tablets, Celecoxib capsules, Total Knee Replacement, Care After, [id number], Aspirin, ASA oral tablets, Docusate capsules, Insulin Lispro injection, Polyethylene Glycol powder Referrals: Albania Norris MD [Physician] - 08/09/18 9:00 am Milli Morgan NP [Nurse Practitioner] - 07/13/18 9:30 am - Discharge Summary/Plan Comment DC Time >30 min.: No - General Info Date of Service: 07/03/18 Admission Dx/Problem (Free Text: degenerative joint disease, LEFT KNEE, tricompartmental. s/p LEFT TKA Functional Status: Reports: Pain Controlled, Tolerating Diet, Ambulating (with FWW), Urinating - Review of Systems General: Reports: No Symptoms. Denies: Fever Pulmonary: Reports: No Symptoms. Denies: Shortness of Breath Cardiovascular: Reports: No Symptoms Gastrointestinal: Reports: No Symptoms. Denies: Nausea, Vomiting Musculoskeletal: Reports: Joint Pain (post surgical left knee pain. AT/EHL/ gastroc 09/30. Sensation grossly intact to LLE. PP2+) Skin: Reports: No Symptoms Neurological: Reports: No Symptoms Psychiatric: Reports: No Symptoms - Patient Data Vitals - Most Recent: Last Vital Signs Temp 36.7 C 07/03/18 11:54 Pulse 83 07/03/18 11:54 Resp 18 07/03/18 11:54 BP 108/72 07/03/18 11:54 Pulse Ox 99 07/03/18 11:54 Weight - Most Recent: 99.79 kg Med Orders - Current: Current Medications Discontinued Medications Al Hydroxide/Mg Hydroxide (Mag-Al Plus) 30 ml PO Q4H PRN PRN Reason: Indigestion Albuterol (Proventil Neb Soln) 2.5 mg NEB ONETIME PRN PRN Reason: Wheezing Aspirin (Aspirin) 325 mg PO BID [facility] Last Admin: 07/03/18 09:16 Dose: 325 mg Atropine Sulfate (Atropine) 1 mg IVPUSH ASDIRECTED PRN PRN Reason: ACLS Guidelines Atropine Sulfate (Atropine 1 Mg/Ml) 0.5 mg IVPUSH ASDIRECTED PRN PRN Reason: Hypo-Perfusion Atropine Sulfate (Atropine 1 Mg/Ml) 1 mg IVPUSH ASDIRECTED PRN PRN Reason: ACLS Guidelines Bisacodyl (Dulcolax) 10 mg RECTAL DAILY PRN PRN Reason: Constipation Cefazolin Sodium (Ancef) Confirm Administered Dose 2 gm .ROUTE .STK-MED ONE Stop: 07/02/18 12:15 Celecoxib (Celebrex) 200 mg PO BID [facility] Last Admin: 07/03/18 09:16 Dose: 200 mg Dextrose/Water (Dextrose 50% In Water) 50 ml IVPUSH ASDIRECTED PRN PRN Reason: Hypoglycemia Diphenhydramine HCl (Benadryl) 25 - 50 mg PO Q6H PRN PRN Reason: Itching Docusate Sodium (Colace) 100 mg PO BID PRN PRN Reason: Constipation Epinephrine HCl (Adrenalin) 1 mg IVPUSH NOW ONE Stop: 07/02/18 12:56 Last Admin: 07/02/18 15:23 Dose: Not Given Famotidine (Pepcid) 40 mg IVPUSH ONARRIVE [facility] Last Admin: 07/02/18 10:25 Dose: 40 mg Famotidine (Pepcid) 40 mg PO DAILY [facility] Last Admin: 07/03/18 09:16 Dose: 40 mg Fentanyl (Sublimaze) Confirm Administered Dose 100 mcg .ROUTE .STK-MED ONE Stop: 07/02/18 10:48 Fentanyl (Sublimaze) 50 - 100 mcg IVPUSH Q5M PRN PRN Reason: Pain Fentanyl (Sublimaze) Confirm Administered Dose 100 mcg .ROUTE .STK-MED ONE Stop: 07/02/18 13:18 Hydrochlorothiazide (Hydrochlorothiazide) 25 mg PO DAILY [facility] Last Admin: 07/03/18 09:16 Dose: 25 mg Acetaminophen 1,000 mg/ Premix 100 mls @ 400 mls/hr IV ONARRIVE [facility] Last Admin: 07/02/18 10:32 Dose: 400 mls/hr Cefazolin Sodium/Dextrose 2 gm (/ Premix) 50 mls @ 100 mls/hr IV ONCALL [facility] Ropivacaine 49.25 ml/Ketorolac Tromethamine 30 mg/Epinephrine HCl 0.5 mg/ Clonidine HCl 80 mcg/ Sodium Chloride 100 mls @ 50 mls/sec INJECT ASDIRECTED [facility] Lactated Ringer's (Ringers, Lactated) 1,000 mls @ 100 mls/hr IV ASDIRECTED [facility] Last Admin: 07/03/18 03:47 Dose: 100 mls/hr Tranexamic Acid 2,000 mg/ (Sodium Chloride) 120 mls @ 600 mls/hr IV ASDIRECTED [facility] Stop: 07/02/18 08:11 Last Admin: 07/02/18 15:22 Dose: Not Given Acetaminophen 1,000 mg/ Premix 100 mls @ 400 mls/hr IV Q6H [facility] Stop: 07/03/18 07:14 Last Admin: 07/03/18 06:42 Dose: 400 mls/hr Cefazolin Sodium/Dextrose 2 gm (/ Premix) 50 mls @ 100 mls/hr IV Q8H [facility] Stop: 07/03/18 05:29 Last Admin: 07/03/18 04:05 Dose: 100 mls/hr Insulin Aspart (Novolog) 0 unit SUBCUT ACBREAKFASTANDBED [facility]; Protocol Last Admin: 07/03/18 06:55 Dose: Not Given Insulin Aspart (Novolog) 0 unit SUBCUT TIDAC [facility]; Protocol Last Admin: 07/03/18 12:03 Dose: Not Given Ketorolac Tromethamine (Toradol) 30 mg IVPUSH ONARRIVE [facility] Last Admin: 07/02/18 10:26 Dose: 30 mg Ketorolac Tromethamine (Toradol) 30 mg IVPUSH Q6H [facility] Stop: 07/03/18 05:00 Last Admin: 07/03/18 00:21 Dose: 30 mg Latanoprost (Xalatan 0.005% Ophth Soln) 0 ml EYEBOTH BEDTIME [facility] Last Admin: 07/02/18 21:43 Dose: Not Given Lidocaine (Xylocaine-Mpf 2%) Confirm Administered Dose 5 ml .ROUTE .STK-MED ONE Stop: 07/02/18 10:48 Midazolam HCl (Versed 1 Mg/Ml) Confirm Administered Dose 2 mg .ROUTE .STK-MED ONE Stop: 07/02/18 10:48 Morphine Sulfate (Morphine Human Resources Director 30 Mg In 30 Ml) 30 mg IV ASDIRECTED PRN; Protocol PRN Reason: Pain Stop: 07/03/18 06:00 Last Admin: 07/02/18 14:21 Dose: 30 mg Morphine Sulfate (Morphine) 1 - 3 mg IVPUSH Q3H PRN PRN Reason: Pain Naloxone HCl (Narcan) 0.1 mg IVPUSH ASDIRECTED PRN PRN Reason: Respiratory Depression Non-Formulary Medication (Telmisartan [Micardis]) 80 mg PO DAILY [facility] Ondansetron HCl (Zofran) 4 mg IVPUSH Q6H PRN PRN Reason: Nausea/Vomiting Oxycodone HCl (Oxycodone) 5 - 10 mg PO Q4H PRN PRN Reason: Pain Stop: 07/03/18 06:00 Last Admin: 07/03/18 04:02 Dose: 10 mg Oxycodone/Acetaminophen (Percocet 325-5 Mg) 1 - 2 tab PO Q4H PRN PRN Reason: Pain Last Admin: 07/03/18 13:37 Dose: 2 tab Polyethylene Glycol (Miralax) 17 gm PO DAILY [facility] Last Admin: 07/03/18 09:18 Dose: 17 gm Propofol (Diprivan 20 Ml) Confirm Administered Dose 400 mg .ROUTE .STK-MED ONE Stop: 07/02/18 10:48 Propofol (Diprivan 20 Ml) Confirm Administered Dose 200 mg .ROUTE .STK-MED ONE Stop: 07/02/18 10:50 Scopolamine (Transderm-Scop) 1.5 mg TRDERM ONARRIVE [facility] Last Admin: 07/02/18 10:24 Dose: 1.5 mg Simvastatin (Zocor) 10 mg PO QPM [facility] Last Admin: 07/02/18 18:52 Dose: 10 mg Sodium Chloride (Saline Flush) 10 ml FLUSH ASDIRECTED PRN PRN Reason: Keep Vein Open Sodium Chloride (Saline Flush) 2.5 ml FLUSH ASDIRECTED PRN PRN Reason: Keep Vein Open Tobramycin (Tobramycin) 1,200 mg IV .STK-MED ONE Stop: 07/02/18 09:50 Tranexamic Acid (Cyklokapron) Confirm Administered Dose 2,000 mg .ROUTE .STK- MED ONE Stop: 07/02/18 07:36 - Exam Quality Assessment: Reports: DVT Prophylaxis (compression stockings & SCDs. ASA BID started POD#1) General: Reports: Alert, Oriented HEENT: Reports: Pupils Equal Lungs: Reports: Normal Respiratory Effort Cardiovascular: Reports: Regular Rate GI/Abdominal Exam: Soft Extremities: No Pedal Edema, Other (AT/EHL/gastroc 5/5. Sensation intact to LLE. PP2+) Skin: Reports: Warm, Dry (surgical incision left knee intact with sutures. ) Wound/Incisions: Reports: Dressing Dry and Intact (AquaCell) Neurological: Reports: No New Focal Deficit Psy/Mental Status: Reports: Alert, Normal Affect, Normal Mood
== END 2018-07-03 15:25 | disposition home or self-care (01) | DRG 302 ==
LOC: MW.SDS 09:48 → MW.MS 14:49
PROVIDERS: ADMIT Orthopaedic Surgery; ATTEND Orthopaedic Surgery
PROC: 0SRD0J9 Replacement of Left Knee Joint with Synthetic Substitute, Cemented, Open Approach (ICD-10-PCS; principal; 2018-07-02)
DX: M17.12 Unilateral primary osteoarthritis, left knee (principal); M25.762 Osteophyte, left knee; E11.9 Type 2 diabetes mellitus without complications; I10 Essential (primary) hypertension; H40.9 Unspecified glaucoma; Z79.82 Long term (current) use of aspirin; Z79.84 Long term (current) use of oral hypoglycemic drugs; E78.00 Pure hypercholesterolemia, unspecified
CPT/HCPCS: 36415; 73560-26-LT; 73560-LT; 80048; 82962; 85014; 85018; 86850; 86900; 86901; 97110-GP; 97161-GP; A9270-GY; C1713; C1776; J0131; J0171; J0690; J0735; J1815-GY; J1885; J2001; J2250; J2274; J2704; J2795; J3010; J3260; J3490; J7050; J7120

== ENCOUNTER 2021-02-02 09:55 | Emergency (ER) | payer BC, OTHER ==
[2021-02-02] MEDS ORDERED: Tetracaine HCl/PF 0.5% 4 ML Bottle EYEBOTH ONE (11:00)
--- NOTE | 2021-02-02 11:20 | EDM.PDOC ---
ED HPI GENERAL MEDICAL PROBLEM - General Chief Complaint: Eye Problems Stated Complaint: RIGHT EYE HAS SOMETHING IN IT Time Seen by Provider: 02/02/21 11:16 Source of Information: Reports: Patient History Limitations: Reports: No Limitations - History of Present Illness INITIAL COMMENTS - FREE TEXT/NARRATIVE: 51-year-old male presents with foreign body to right eye. Patient notes that on Monday he was cutting a tin roof and thinks maybe something got in his eye. He was also cutting some metal yesterday so thinks it could have occurred then as his pain did not start till around 3 AM today. He notes redness of his eye and tearing from the eye but no visual changes. No other injuries reported. Tdap UTD w/i 5yrs right eye Pain Score (Numeric/FACES): 3 - Related Data Allergies Allergy/AdvReac Type Severity Reaction Status Date / Time No Known Allergies Allergy Verified 02/02/21 11:36 Home Meds: Home Meds Folic Acid 0.4 mg PO DAILY 02/06/15 [History] Hydrochlorothiazide 25 mg PO DAILY 02/06/15 [History] Multivitamin [Multi-Vitamin Daily] 1 tab PO DAILY 02/06/15 [History] Telmisartan [Micardis] 80 mg PO DAILY 02/06/15 [History] Latanoprost/Pf [Latanoprost 0.005% Eye Drop] 1 drop EYEBOTH BEDTIME 05/08/18 [History] Saxagliptin HCl [Onglyza] 5 mg PO DAILY 05/08/18 [History] Simvastatin 10 mg PO QPM 05/08/18 [History] metFORMIN HCl [Metformin ER Osmotic] 1,000 mg PO QAM 05/08/18 [History] metFORMIN HCl [Metformin ER Osmotic] 1,500 mg PO QPM 05/08/18 [History] Celecoxib [CeleBREX] 200 mg PO DAILY #30 cap 05/09/18 [Rx] Acetaminophen/oxyCODONE [Percocet 325-5 MG] 1 - 2 tab PO Q4H PRN #60 tablet 07/03/18 [Rx] Aspirin 325 mg PO BID #60 tablet 07/03/18 [Rx] Docusate Sodium [Colace] 100 mg PO BID PRN #60 cap 07/03/18 [Rx] Insulin Lispro [HumaLOG] 100 unit SQ ASDIRECTED #1 ml 07/03/18 [Rx] polyethylene glycoL 3350 [MiraLAX] 17 gm PO DAILY #600 gram 07/03/18 [Rx] Past Medical History HEENT History: Reports: Glaucoma, Other (See Below) Other HEENT History: wears glasses Cardiovascular History: Reports: High Cholesterol, Hypertension Respiratory History: Reports: None Gastrointestinal History: Reports: None Genitourinary History: Reports: None Musculoskeletal History: Reports: Osteoarthritis Neurological History: Reports: None Psychiatric History: Reports: None Endocrine/Metabolic History: Reports: Diabetes, Type II Hematologic History: Reports: None Immunologic History: Reports: None Oncologic (Cancer) History: Reports: None Dermatologic History: Reports: None - Infectious Disease History Infectious Disease History: Reports: None - Past Surgical History Head Surgeries/Procedures: Reports: None HEENT Surgical History: Reports: Eye Surgery Musculoskeletal Surgical History: Reports: Arthroscopic Knee, Knee Replacement Other Musculoskeletal Surgeries/Procedures:: Left Knee arthroscopy (denies any hardware) Social & Family History - Living Situation & Occupation Living situation: Reports: ED ROS GENERAL - Review of Systems Review Of Systems: Comprehensive ROS is negative, except as noted in HPI. ED EXAM GENERAL W FULL EYE - Physical Exam Exam: See Below Exam Limited By: No Limitations General Appearance: Alert, WD/WN, No Apparent Distress Eye Exam: Bilateral Eye: Other (metalic FB in R 8o'clock position cornea, no other FBs noted) Throat/Mouth: Normal Voice, No Airway Compromise Head: Atraumatic, Normocephalic Neck: Normal Inspection Respiratory/Chest: No Respiratory Distress, No Accessory Muscle Use Cardiovascular: Normal Peripheral Pulses Extremities: Normal Inspection Neurological: Alert, Normal Cognition, Normal Gait Psychiatric: Normal Affect, Normal Mood Skin Exam: Warm, Dry, Intact, Normal Color Course - Vital Signs Last Recorded V/S: Last Vital Signs Temp 98 F 02/02/21 11:24 Pulse 60 02/02/21 11:24 Resp 17 02/02/21 11:24 BP 121/78 02/02/21 11:24 Pulse Ox 97 02/02/21 11:24 - Orders/Labs/Meds Orders: Active Orders 24 hr Category Date Time Status Vision Test [RC] ASDIRECTED Care 02/02/21 11:00 Active Meds: Medications Discontinued Medications Generic Name Dose Route Start Last Admin Trade Name Freq PRN Reason Stop Dose Admin Tetracaine HCl 1 ml 02/02/21 11:00 02/02/21 11:21 Tetracaine Hcl/Pf 0.5% 4 Ml Bottle EYEBOTH 02/02/21 11:01 1 applic ASDIRECTED ONE Administration - Re-Assessments/Exams Free Text/Narrative Re-Assessment/Exam: 02/02/21 11:32 I was unable to remove the foreign body. 02/02/21 11:37 PERFORMANCE IMPROVEMENT COORDINATOR colleague Isaac was able to easily remove the FB; there is a corneal abrasion. Will d/c with opthalmology f/u Departure - Departure Time of Disposition: 11:38 Disposition: Home, Self-Care 01 Condition: Good Clinical Impression: Corneal abrasion Qualifiers: Encounter type: initial encounter Laterality: right Qualified Code(s): S05.01XA - Injury of conjunctiva and corneal abrasion without foreign body, right eye, initial encounter - Discharge Information Instructions: Eye Foreign Body, [id number], Corneal Abrasion Referrals: Say Belcher MD [Primary Care Provider] - Forms: ED Department Discharge Additional Instructions: Please follow-up with ophthalmology in the next [address] to [address] Say Wild [address] [address] The following information is given to patients seen in the emergency department who are being discharged to home. This information is to outline your options for follow-up care. We provide all patients seen in our emergency department with a follow-up referral. The need for follow-up, as well as the timing and circumstances, are variable depending upon the specifics of your emergency department visit. If you don't have a primary care physician on staff, we will provide you with a referral. We always advise you to contact your personal physician following an emergency department visit to inform them of the circumstance of the visit and for follow-up with them and/or the need for any referrals to a consulting specialist. The emergency department will also refer you to a specialist when appropriate. This referral assures that you have the opportunity for follow-up care with a specialist. All of these measure are taken in an effort to provide you with optimal care, which includes your follow-up. Under all circumstances we always encourage you to contact your private physician who remains a resource for coordinating your care. When calling for follow-up care, please make the office aware that this follow-up is from your recent emergency room visit. If for any reason you are refused follow-up, please contact the Emergency Department at and asked to speak to the emergency department charge nurse. Please follow up with your primary care physician. If you do not have a primary care physician, see below: [facility] [address] [place] [id number] [facility] [address] [place] [address] [facility] [address] [place] [id number] Sepsis Event Note (ED) - Focused Exam Vital Signs: Vital Signs Temp Pulse Resp BP Pulse Ox 02/02/21 11:24 98 F 60 17 121/78 97
[2021-02-02 20:00] VITALS: BP 117/75; PULSE 87
== END 2021-02-02 11:57 | disposition home or self-care (01) ==
LOC: MW.ED 09:55
DX: S05.01XA Injury of conjunctiva and corneal abrasion without foreign body, right eye, initial encounter (principal); E78.00 Pure hypercholesterolemia, unspecified; I10 Essential (primary) hypertension; E11.9 Type 2 diabetes mellitus without complications; Z79.4 Long term (current) use of insulin; Z79.82 Long term (current) use of aspirin; W22.8XXA Striking against or struck by other objects, initial encounter
CPT/HCPCS: 65220; 99283-25